=== PATIENT | male | born 1935 ===

== ENCOUNTER 2016-10-23 06:51 | Inpatient (IN) | payer MEDICARE, MEDICAID ==
[2016-10-23 06:52] VITALS: BMI 29.2
[2016-10-23] MEDS ORDERED: Sodium Chloride 0.9% 1,000 ML IV STA (07:41)
--- NOTE | 2016-10-23 07:42 | ED PDOC ---
HPI: Altered Mental Status Time Seen by Provider: 10/23/16 07:15 Chief Complaint (Nursing): Trauma Chief Complaint (Provider): Altered mental status History Per: Patient History/Exam Limitations: None Onset/Duration Of Symptoms: Hrs Associated Symptoms: Fever Additional Complaint(s): Patient is a 81 y/o male with a past medical history of congestive heart failure and deep vein thrombosis presenting to the emergency department for altered mental status since 5 a.m. today status post fall hours prior to arrival. Family reports that EMS was called this morning for a fall assist and patient signed an RMA. Upon ED arrival, reports patient wasn't feeling well and was confused (although AOx3). Now presents with a fever and redness to his left leg. Due to patient's limited verbal status, history and other information are limited. PCP: Dr. Viraj Nicole Past Medical History Reviewed: Historical Data, Nursing Documentation, Vital Signs Vital Signs: Last Vital Signs Temp 100.0 F H 10/23/16 07:03 Pulse 93 H 10/23/16 07:03 Resp 18 10/23/16 07:03 BP 100/58 L 10/23/16 07:03 Pulse Ox 95 10/23/16 07:03 - Medical History PMH: Arthritis, Asthma, Atrial Fibrillation, Bronchitis, Cardia Arrhythmia (a fib dipti), Diabetes, Diverticulitis, Gastritis, Gall Bladder Disease, Hiatal Hernia, HTN, Hypercholesterolemia, Hyperlipidemia, Malignancy (Colon cancer), Parkinson's Disease, TIA Denies: Chronic Kidney Disease - Surgical History Surgical History: Cholecystectomy Other surgeries: Skull fracture - Family History Family History: States: Unknown Family Hx - Social History Current smoker - smoking cessation education provided: No Ex-Smoker (has not smoked in the last 12 months): No Alcohol: None Drugs: Denies - Immunization History Hx Tetanus Toxoid Vaccination: No Hx Influenza Vaccination: No Hx Pneumococcal Vaccination: No - Home Medications Home Medications: Ambulatory Orders Medication Instructions Recorded Aspirin [Ecotrin] 81 mg PO DAILY 03/23/15 Ergocalciferol (Vitamin D2) 50,000 unit PO QWK 03/23/15 [Vitamin D2] Lisinopril 5 mg PO DAILY 03/23/15 Metformin HCl 500 mg PO BID 03/23/15 Carbidopa/Levodopa 25/100 mg 1 tab PO TID #0 tab 12/03/15 [Sinemet] Nabumetone [Relafen] 500 mg PO DAILY #0 tab 12/03/15 Omeprazole 20 mg PO DAILY 09/13/16 Pramipexole Di-HCl [Pramipexole 0.25 mg PO TID 09/13/16 Dihydrochloride] Simvastatin 20 mg PO HS 09/13/16 Tamsulosin [Flomax] 0.4 mg PO DAILY 09/13/16 - Allergies Allergies/Adverse Reactions: Allergies Allergy/AdvReac Type Severity Reaction Status Date / Time No Known Allergies Allergy Verified 10/23/16 07:02 Review of Systems ROS Statement: Except As Marked, All Systems Reviewed And Found Negative Constitutional: Positive for: Fever Musculoskeletal: Positive for: Other (Redness to left leg) Neurological: Positive for: Altered Mental Status (with limited verbal status) Physical Exam - Reviewed Nursing Documentation Reviewed: Yes Vital Signs Reviewed: Yes - Physical Exam Appears: Positive for: Non-toxic (weak elderly male ), No Acute Distress Head Exam: Positive for: ATRAUMATIC, NORMAL INSPECTION, NORMOCEPHALIC Skin: Positive for: Normal Color, Warm, Dry (dry mucous) Eye Exam: Positive for: Normal appearance. Negative for: Scleral icterus Neck: Positive for: Normal, Painless ROM, Supple Cardiovascular/Chest: Positive for: Regular Rate, Rhythm. Negative for: Murmur Respiratory: Positive for: Normal Breath Sounds. Negative for: Accessory Muscle Use, Respiratory Distress Gastrointestinal/Abdominal: Positive for: Soft Extremity: Positive for: Other (erythema and warmth along left leg from ankle to right above the knee). Negative for: Pedal Edema Neurologic/Psych: Positive for: Alert - Laboratory Results Result Diagrams: 10/24/16 09:00 10/24/16 09:00 - ECG ECG Rhythm: Positive for: Sinus Rhythm (93 bpm) O2 Sat by Pulse Oximetry: 95 (RA) Pulse Ox Interpretation: Normal Medical Decision Making Medical Decision Making: Time: 07:41 Initial impression: 81 year status post fall yesterday and today with gen weakness rule out Uti, possible cellulitis on leg, rule out dvt, rule out pneumonia Initial plan: Labs EKG Chest X-Ray Normal Saline 1 L IV Blood Culture Urine Culture Urinalysis Reevaluation ekg nsr, pt will be treated with abx for cellulits of left leg. urine and cxr are negative for acute infection. small amount of ivf given due to pt history of chf , will hold off on large boluses of iv fluids. pt to be admitted to telemetry for cardiac monitoring due to strong cardiac history. pt goes to [place], will be admitted to dr morton. thee nagy aware of admission. 08:33 Chest x-ray reviewed. Findings noted as follows: LUNGS: No active pulmonary disease. PLEURA: No significant pleural effusion identified, no pneumothorax apparent. CARDIOVASCULAR: No radiographic findings to suggest acute or significant cardiovascular disease. OSSEOUS STRUCTURES: No significant abnormalities. VISUALIZED UPPER ABDOMEN: Normal. OTHER FINDINGS: None. IMPRESSION: No active disease. No significant interval change compared to the prior examination(s). 11:03 CT head scan reviewed. Findings noted as follows: HEMORRHAGE: No intracranial hemorrhage. BRAIN: No mass effect or edema. Mild atrophy. VENTRICLES: Unremarkable. No hydrocephalus. CALVARIUM: Unremarkable. PARANASAL SINUSES: Unremarkable as visualized. No significant inflammatory changes. MASTOID AIR CELLS: Unremarkable as visualized. No inflammatory changes. OTHER FINDINGS: None. IMPRESSION: No acute hemorrhage. 12:50 Hip/Pelvic CT scan reviewed. Findings noted as follows: BONES: Pelvis: Unremarkable. Right hip:Unremarkable. Left hip:Unremarkable. JOINTS: Symmetrical narrowing of hip joint spaces. Sacroiliac Joints: Unremarkable. Pubic symphysis: Unremarkable. SOFT TISSUES: Normal. OTHER FINDINGS: None. IMPRESSION: No acute findings related to/accounting for the clinical presentation. Scribe Attestation: Documented by Rosa Bajwa, acting as a scribe for Vanessa Dumas MD. Provider Scribe Attestation: All medical record entries made by the Scribe were at my direction and personally dictated by me. I have reviewed the chart and agree that the record accurately reflects my personal performance of the history, physical exam, medical decision making, and the department course for this patient. I have also personally directed, reviewed, and agree with the discharge instructions and disposition. Disposition - Clinical Impression Clinical Impression: Cellulitis of knee, left, Dehydration, Fall - Patient ED Disposition Is Patient to be Admitted: Yes - Disposition Disposition Time: 09:00 Condition: FAIR
--- NOTE | 2016-10-23 07:46 | CARD ---
APPROVED REPORT EKG Measurement Heart [id number] <Conclusion> Normal sinus rhythm Nonspecific T wave abnormality Abnormal ECG
[2016-10-23 08:30] LABS: BASO % 0.3 % (0.0-2.0); HEMATOCRIT 38.7 % (35.0-51.0); LYMPH # 1.3 K/uL (1.0-4.3); LYMPH % 7.5 % (20.0-40.0); MEAN CELL VOLUME 90.1 fl (80.0-94.0); MEAN CORPUSCULAR HEMOGLOBIN 29.8 pg (27.0-31.0); MEAN CORPUSCULAR HGB CONC 33.1 g/dL (33.0-37.0); MEAN PLATELET VOLUME 10.4 fl (7.2-11.7); MONO # 0.7 K/uL (0.0-0.8); MONO % 4.1 % (0.0-10.0); NEUT # 14.8 K/uL (1.8-7.0); NEUT % 88.1 % (50.0-75.0); NRBC % 0.1 % (0.0-0.0); PLATELET COUNT 130 K/uL (130-400); RED CELL DISTRIBUTION WIDTH 14.5 % (11.5-14.5); WHITE BLOOD COUNT 16.8 K/uL (4.8-10.8)
[2016-10-23 08:30] LABS: VENOUS BLOOD GAS BASE EXCESS 3.9 mmol/L (0.0-2.0); VENOUS BLOOD GAS PCO2 51 mmHg (40-60); VENOUS BLOOD PH 7.38 (7.32-7.43)
[2016-10-23 08:35] LABS: ALB/GLOB RATIO 1.4 (1.0-2.1); ALKALINE PHOSPHATASE 46 U/L (38-126); ALT/SGPT 48 U/L (21-72); AST/SGOT 94 U/L (17-59); BILIRUBIN,TOTAL 1.7 mg/dl (0.2-1.3); BLOOD UREA NITROGEN 26 mg/dl (9-20); CALCIUM 9.6 mg/dL (8.4-10.2); CARBON DIOXIDE 25 mmol/L (22-30); CHLORIDE 100 mmol/L (98-107); GFR AFRICAN-AMERICAN > 60; GLUCOSE,RANDOM 116 mg/dL (75-110); POTASSIUM 4.3 MMOL/L (3.6-5.0); SODIUM 138 mmol/l (132-148); TOTAL PROTEIN 7.6 G/DL (6.3-8.2)
--- NOTE | 2016-10-23 08:35 | RAD ---
HISTORY: weakness Technique: Supine view performed @ 08:15. COMPARISON: 11/29/2015 FINDINGS: LUNGS: No active pulmonary disease. PLEURA: No significant pleural effusion identified, no pneumothorax apparent. CARDIOVASCULAR: No radiographic findings to suggest acute or significant cardiovascular disease. OSSEOUS STRUCTURES: No significant abnormalities. VISUALIZED UPPER ABDOMEN: Normal. OTHER FINDINGS: None. IMPRESSION: No active disease. No significant interval change compared to the prior examination(s). No preliminary report provided by emergency department personnel.
[2016-10-23 09:06] LABS: GIANT PLATELETS PRESENT; LARGE PLATELETS PRESENT; NEUTROPHIL 87 % (42-75); TOTAL CELLS COUNTED 100
[2016-10-23] MEDS ORDERED: Ampicillin/Sulbactam 3 GM in Sodium Chloride 0.9% 100 ML IVPB ONE (10:30)
--- NOTE | 2016-10-23 11:04 | CT ---
PROCEDURE: CT HEAD WITHOUT CONTRAST. HISTORY: fall last night COMPARISON: None available. TECHNIQUE: Axial computed tomography images were obtained through the head/brain without intravenous contrast. Radiation dose: Total exam DLP = 878 mGy-cm. This CT exam was performed using one or more of the following dose reduction techniques: Automated exposure control, adjustment of the mA and/or kV according to patient size, and/or use of iterative reconstruction technique. FINDINGS: HEMORRHAGE: No intracranial hemorrhage. BRAIN: No mass effect or edema. Mild atrophy. VENTRICLES: Unremarkable. No hydrocephalus. CALVARIUM: Unremarkable. PARANASAL SINUSES: Unremarkable as visualized. No significant inflammatory changes. MASTOID AIR CELLS: Unremarkable as visualized. No inflammatory changes. OTHER FINDINGS: None. IMPRESSION: No acute hemorrhage.
[2016-10-23 12:33] LABS: ABG ALLEN TEST YES; ARTERIAL BLOOD GAS HCO3 27.9 mmol/L (21-28); ARTERIAL BLOOD GAS PH 7.47 (7.35-7.45); ARTERIAL BLOOD GAS PO2 74 mm/Hg (80-100)
--- NOTE | 2016-10-23 12:52 | RAD ---
PROCEDURE: Radiographs of the pelvis and bilateral hips HISTORY: fall last night COMPARISON: None. FINDINGS: BONES: Pelvis: Unremarkable. Right hip:Unremarkable. Left hip:Unremarkable. JOINTS: Symmetrical narrowing of hip joint spaces. Sacroiliac Joints: Unremarkable. Pubic symphysis: Unremarkable. SOFT TISSUES: Normal. OTHER FINDINGS: None. IMPRESSION: No acute findings related to/accounting for the clinical presentation.
[2016-10-23 13:05] LABS: RBC URINE 10 /hpf (0-3); URINE BACTERIA RARE (<OCC); URINE BILIRUBIN SMALL (NEGATIVE); URINE BLOOD SMALL (NEGATIVE); URINE COLOR AMBER (YELLOW); URINE GLUCOSE (UA) NEG (Normal); URINE KETONE TRACE mg/dL (NEGATIVE); URINE LEUKOCYTE ESTERASE NEG Leu/uL (Negative); URINE PROTEIN 30 mg/dL (NEGATIVE); URINE UROBILINOGEN 0.2-1.0 mg/dL (0.2-1.0); WBC URINE 2 /hpf (0-5)
[2016-10-23] MEDS ORDERED: Ergocalciferol 50,000 Intl Units Cap PO SCH (14:15)
--- NOTE | 2016-10-23 15:23 | US ---
HISTORY: left leg redness history of dvt . Left calf erythema PRIORS: 11/29/2015 FINDINGS: 2-D, color and duplex Doppler analysis of the lower extremity venous circulation using routine protocol from the femoral veins through the popliteal veins. Venous compressibility: Normal. Flow and augmentation patterns: Normal. Visualized veins upper third of calf: Normal. Johnson cyst: None. Incidental finding(s): Left inguinal lymphadenopathy similar to that seen previously. Morphologically, unremarkable lymph nodes. IMPRESSION: No sonographic or Doppler evidence for DVT in left lower extremity. PROCEDURE: Negative study for left lower extremity deep vein thrombosis
[2016-10-23] MEDS: Pantoprazole 20 mg EC Tab PO SCH (17:04)
[2016-10-23] MEDS: Sodium Chloride 0.9% 1,000 ML IV SCH (17:05)
[2016-10-23] MEDS: Nabumetone 500 MG TAB PO SCH (17:05)
[2016-10-23] MEDS: Ampicillin/Sulbactam 3 GM in Sodium Chloride 0.9% 100 ML IVPB SCH ×2 (17:08→21:17)
[2016-10-23] MEDS ORDERED: Pneumococcal 23-Valent Vaccine IM ONE (18:18)
[2016-10-24] MEDS: Sodium Chloride 0.9% 1,000 ML IV SCH ×2 (01:00→11:20)
[2016-10-24] MEDS: Ampicillin/Sulbactam 3 GM in Sodium Chloride 0.9% 100 ML IVPB SCH ×4 (04:55→21:26)
--- NOTE | 2016-10-24 08:32 | CP.PCM.HP ---
History of Present Illness - History of Present Illness History of Present Illness: pt admitted for lle cellulitis and fall. pt w/ some dehydration on bw. offers no complaitns. pt noted to be in rapid afib at present w/ hr 110-140. no cp, palpitations, dyspnea. cardio on case lle erythematous, indurated. no open wounds. am labs pending Present on Admission - Present on Admission Any Indicators Present on Admission: No History of Uncontrolled Diabetes: No Review of Systems - Cardiovascular Cardiovascular: As Per HPI, Rapid Heart Rate - Integumentary Integumentary: As Per HPI, Erythema Past Patient History - Infectious Disease Hx of Infectious Diseases: None - Past Medical History & Family History Past Medical History?: Yes - Past Social History Smoking Status: Former Smoker - CARDIAC Hx Cardiac Disorders: Yes Hx Atrial Fibrillation: Yes Hx Cardia Arrhythmia: Yes Hx Congestive Heart Failure: Yes Hx Hypertension: Yes - PULMONARY Hx Respiratory Disorders: Yes Hx Asthma: Yes Hx Bronchitis: Yes - NEUROLOGICAL Hx Neurological Disorder: Yes Hx Parkinson's Disease: Yes - HEENT Hx HEENT Problems: Yes Other/Comment: wears glasses - RENAL Hx Chronic Kidney Disease: No - ENDOCRINE/METABOLIC Hx Endocrine Disorders: Yes Hx Diabetes Mellitus Type 2: Yes - HEMATOLOGICAL/ONCOLOGICAL Hx Blood Disorders: Yes Hx Cancer: Yes (prostate) - INTEGUMENTARY Hx Dermatological Problems: Yes Hx Cellulitis: Yes (history of) - MUSCULOSKELETAL/RHEUMATOLOGICAL Hx Musculoskeletal Disorders: Yes Hx Falls: Yes - GASTROINTESTINAL Hx Gastrointestinal Disorders: Yes Hx Diverticulitis: Yes Hx Gall Bladder Disease: Yes Hx Gastritis: Yes - GENITOURINARY/GYNECOLOGICAL Hx Genitourinary Disorders: Yes Hx Incontinence: Yes Hx Prostate Problems: Yes - PSYCHIATRIC Hx Psychophysiologic Disorder: No - SURGICAL HISTORY Hx Surgeries: Yes Hx Cholecystectomy: Yes Hx Herniorrhaphy: Yes - ANESTHESIA Hx Anesthesia: Yes Hx Anesthesia Reactions: No Hx Malignant Hyperthermia: No Meds Allergies/Adverse Reactions: Allergies Allergy/AdvReac Type Severity Reaction Status Date / Time No Known Allergies Allergy Verified 10/23/16 07:02 Physical Exam - Constitutional Appears: Well, Non-toxic, No Acute Distress - Head Exam Head Exam: ATRAUMATIC, NORMAL INSPECTION, NORMOCEPHALIC - Eye Exam Eye Exam: EOMI, Normal appearance, PERRL Pupil Exam: NORMAL ACCOMODATION, PERRL - ENT Exam ENT Exam: Mucous Membranes Moist, Normal Exam - Neck Exam Neck exam: Positive for: Normal Inspection - Respiratory Exam Respiratory Exam: Clear to Auscultation Bilateral, NORMAL BREATHING PATTERN - Cardiovascular Exam Cardiovascular Exam: Irregular Rhythm, +S1, +S2 - GI/Abdominal Exam GI & Abdominal Exam: Normal Bowel Sounds, Soft. absent: Tenderness - Extremities Exam Extremities exam: Positive for: full ROM, normal capillary refill, normal inspection, pedal pulses present - Back Exam Back exam: FULL ROM, NORMAL INSPECTION - Neurological Exam Neurological exam: Abnormal Gait, Alert, CN II-XII Intact, Oriented x3, Reflexes Normal - Psychiatric Exam Psychiatric exam: Normal Affect, Normal Mood - Skin Skin Exam: Dry, Erythema, Intact, Normal Color, Warm Additional comments: lle erythematous Results - Vital Signs Recent Vital Signs: Last Vital Signs Temp 99.0 F 10/24/16 08:22 Pulse 90 10/24/16 08:22 Resp 18 10/24/16 08:22 BP 96/66 L 10/24/16 08:22 Pulse Ox 96 10/24/16 08:22 - Labs Result Diagrams: 10/23/16 08:15 10/23/16 08:15 Labs: Laboratory Results - last 24 hr 10/23/16 10/23/16 10/23/16 12:20 12:30 16:16 pCO2 38 pO2 74 L HCO3 27.9 ABG pH 7.47 H ABG Total CO2 28.9 H ABG O2 Saturation 97.9 ABG Base Excess 3.9 H New Test Yes ABG Potassium 3.7 A-a O2 Difference 78.0 Sodium 133.0 Chloride 104.0 Glucose 121 H Lactate 0.8 FiO2 28.0 POC Glucose (mg/dL) 113 H Arterial Blood Potassium 3.7 Urine Color Iris Urine Clarity Slighty-cloudy Urine pH 6.0 Ur Specific [place] 1.027 Urine Protein 30 Urine Glucose (UA) Neg Urine Ketones Trace Urine Blood Small Urine Nitrate Negative Urine Bilirubin Small Urine Urobilinogen 0.2-1.0 Ur Leukocyte Esterase Neg Urine RBC (Auto) 10 H Urine Microscopic WBC 2 Ur Squamous Epith Cells < 1 Urine Bacteria Rare 10/23/16 10/24/16 21:34 05:46 pCO2 pO2 HCO3 ABG pH ABG Total CO2 ABG O2 Saturation ABG Base Excess New Test ABG Potassium A-a O2 Difference Sodium Chloride Glucose Lactate FiO2 POC Glucose (mg/dL) 126 H 122 H Arterial Blood Potassium Urine Color Urine Clarity Urine pH Ur Specific [place] Urine Protein Urine Glucose (UA) Urine Ketones Urine Blood Urine Nitrate Urine Bilirubin Urine Urobilinogen Ur Leukocyte Esterase Urine RBC (Auto) Urine Microscopic WBC Ur Squamous Epith Cells Urine Bacteria Assessment & Plan (1) Atrial fibrillation with rapid ventricular response Assessment and Plan: cardizem ivp lovenox, asa cardio Status: Acute (2) Cellulitis Assessment and Plan: unasyn podiatry if any wound opens Status: Acute (3) DM2 (diabetes mellitus, type 2) Assessment and Plan: home meds, fsbg Status: Acute (4) DVT prophylaxis Assessment and Plan: scda nda ehose lovenox Status: Acute Decision To Admit - Pt Status Changed To: Hospital Disposition Of: Inpatient - Admit Certification Admit to Inpatient:: After my assessment, the patient will require hospitalization for at least two midnights. This is because of the severity of symptoms shown, intensity of services needed, and/or the medical risk in this patient being treated as an outpatient. - . Bed Request Type: Telemetry Admitting Physician: Emily Johnson
--- NOTE | 2016-10-24 08:36 | CARD ---
APPROVED REPORT EKG Measurement Heart [id number] <Conclusion> Atrial fibrillation with rapid ventricular response Nonspecific T wave abnormality Abnormal ECG
[2016-10-24] MEDS: Nabumetone 500 MG TAB PO SCH (08:55)
[2016-10-24] MEDS: Pantoprazole 20 mg EC Tab PO SCH (08:55)
[2016-10-24] MEDS ORDERED: Enoxaparin 40 mg Syringe SC SCH (09:00)
[2016-10-24 09:18] LABS: BASO % 0.2 % (0.0-2.0); EOS % 0.1 % (0.0-4.0); HEMATOCRIT 36.4 % (35.0-51.0); LYMPH # 1.6 K/uL (1.0-4.3); LYMPH % 11.9 % (20.0-40.0); MEAN CELL VOLUME 90.5 fl (80.0-94.0); MEAN CORPUSCULAR HEMOGLOBIN 29.4 pg (27.0-31.0); MEAN CORPUSCULAR HGB CONC 32.5 g/dL (33.0-37.0); MEAN PLATELET VOLUME 10.5 fl (7.2-11.7); MONO # 1.1 K/uL (0.0-0.8); MONO % 7.6 % (0.0-10.0); NEUT % 80.2 % (50.0-75.0); RED CELL DISTRIBUTION WIDTH 14.2 % (11.5-14.5); WHITE BLOOD COUNT 13.7 K/uL (4.8-10.8)
[2016-10-24 09:28] LABS: ALB/GLOB RATIO 1.2 (1.0-2.1); ALKALINE PHOSPHATASE 50 U/L (38-126); ALT/SGPT 52 U/L (21-72); AST/SGOT 75 U/L (17-59); BILIRUBIN,TOTAL 1.5 mg/dl (0.2-1.3); BLOOD UREA NITROGEN 20 mg/dl (9-20); CALCIUM 8.5 mg/dL (8.4-10.2); CARBON DIOXIDE 25 mmol/L (22-30); CHLORIDE 104 mmol/L (98-107); GFR AFRICAN-AMERICAN > 60; GLUCOSE,RANDOM 100 mg/dL (75-110); POTASSIUM 4.1 MMOL/L (3.6-5.0); SODIUM 138 mmol/l (132-148); TOTAL PROTEIN 6.6 G/DL (6.3-8.2)
[2016-10-24] MEDS ORDERED: Sodium Chloride 0.9% 250 ML IV SCH (11:00)
[2016-10-24] MEDS ORDERED: Digoxin 500 mcg/2ml (0.5 mg/2ml) Inj IVP ONE (16:19)
--- NOTE | 2016-10-24 16:25 | CP.PCM.CON ---
History of Present Illness - History of Present Illness History of Present Illness: I was asked to see patient by Dr Johnson and Kash Underwood APN. Patient is a 81 year old male with a history of HTN, prostate cancer, who presents with weakness and a fall. The patient was found to be in atrial fibrillation with rapid ventricular response. Patient has no history of afib. He denies chest pain or dyspnea Review of Systems - Constitutional Constitutional: absent: As Per HPI, Anorexia, Chills, Daytime Sleepiness, Excessive Sweating, Fatigue, Fever, Frequent Falls, Headache, Increased Appetite , Lethargy, Malaise, Night Sweats, Snoring, Sleep Apnea, Weight Gain, Weight Loss, Weakness, Other - EENT Eyes: absent: As Per HPI, Blind Spots, Blurred Vision, Change in Vision, Decreased Night Vision, Diplopia, Discharge, Dry Eye, Exophthalmos, Floaters, Irritation, Itchy Eyes, Loss of Peripheral Vision, Pain, Photophobia, Requires Corrective Lenses, Sees Flashes, Spots in Vision, Tunnel Vision, Other Visual Disturbances, Loss of Vision, Other Ears: absent: As Per HPI, Decreased Hearing, Ear Discharge, Ear Pain, Tinnitus, Abnormal Hearing, Disequilibrium, Dizziness, Other Nose/Mouth/Throat: absent: As Per HPI, Epistaxis, Nasal Congestion, Nasal Discharge, Nasal Obstruction, Nasal Trauma, Nose Pain, Post Nasal Drip, Sinus Pain, Sinus Pressure, Bleeding Gums, Change in Voice, Dental Pain, Dry Mouth, Dysphagia, Halitosis, Hoarsness, Lip Swelling, Mouth Lesions, Mouth Pain, Odynophagia, Sore Throat, Throat Swelling, Tongue Swelling, Facial Pain, Neck Pain, Neck Mass, Other - Cardiovascular Cardiovascular: Dyspnea, Irregular Heart Rhythm - Respiratory Respiratory: absent: As Per HPI, Cough, Dyspnea, Hemoptysis, Dyspnea on Exertion , Wheezing, Snoring, Stridor, Pain on Inspiration, Chest Congestion, Excessive Mucous Production, Change in Mucous Color, Pain with Coughing, Other - Gastrointestinal Gastrointestinal: absent: As Per HPI, Abdominal Pain, Belching, Bloating, Change in Bowel Habits, Change in Stool Character, Coffee Ground Emesis, Constipation, Cramping, Diarrhea, Dyspepsia, Dysphagia, Early Satiety, Excessive Flatus, Fecal Incontinence, Heartburn, Hematemesis, Hematochezia, Loose Stools, Melena, Nausea, Odynophagia, Temesmus, Vomiting, Other - Genitourinary Genitourinary: absent: As Per HPI, Change in Urinary Stream, Difficulty Urinating, Dysuria, Flank Pain, Hematuria, Pyuria, Nocturia, Urinary Incontinence, Urinary Frequency, Urinary Hesitance, Urinary Urgency, Voiding Freq/Small Amts, Freq UTI, Hx Renal/Bladder Calculi, Hx /Renal Surgery, Bladder Distension, Other - Musculoskeletal Musculoskeletal: absent: As Per HPI, Abnormal Gait, Arthralgias, Atrophy, Back Pain, Deformity, Joint Swelling, Limited Range of Motion, Loss of Height, Muscle Cramps, Muscle Weakness, Myalgias, Neck Pain, Numbness, Radiating Pain into Limb, Stiffness, Tingling, Other - Integumentary Integumentary: absent: As Per HPI, Acne, Alopecia, Bleeding Lesions, Change in Hair, Change in Nails, Change in Pigmentation, Changing Lesions, Dry Skin, Erythema, Furuncle, Hirsutism, Lesions, New Lesions, Non-Healing Lesions, Photosensitivity, Pruritus, Rash, Skin Pain, Skin Ulcer, Sores, Striae, Swelling , Unusual Bruising, Wounds, Jaundice, Other - Neurological Neurological: absent: As Per HPI, Abnormal Gait, Abnormal Hearing, Abnormal Movements, Abnormal Speech, Behavioral Changes, Burning Sensations, Confusion, Convulsions, Disequilibrium, Dizziness, Numbness, Focal Weakness, Frequent Falls , Headaches, Lack of Coordination, Loss of Vision, Memory Loss, Paresthesias, Radicular Pain, Restless Legs, Sensory Deficit, Syncope, Tingling, Tremor, Vertigo, Weakness, Other Visual Disturbances, Other - Psychiatric Psychiatric: absent: As Per HPI, Abnormal Sleep Pattern, Anhedonia, Anxiety, Auditory Hallucinations, Behavioral Changes, Change in Appetite, Change in Libido, Confusion, Depression, Difficulty Concentrating, Hallucinations, Homicidal Ideation, Hopelessness, Irritability, Memory Loss, Mood Swings, Panic Attacks, Paranoia, Suicidal Ideation, Visual Hallucinations, Tactile Hallucinations, Other - Endocrine Endocrine: absent: As Per HPI, Change in Body Appearance, Change in Libido, Cold Intolorance, Deepening of Voice, Excessive Sweating, Fatigue, Flushing, Heat Intolorance, Increase in Ring/Shoe/Hat Size, Palpitations, Polydipsia, Polyphagia, Polyuria, Other - Hematologic/Lymphatic Hematologic: absent: As Per HPI, Easy Bleeding, Easy Bruising, Lymphadenopathy, Other Past Patient History - Infectious Disease Hx of Infectious Diseases: None - Past Medical History & Family History Past Medical History?: Yes - Past Social History Smoking Status: Former Smoker - CARDIAC Hx Cardiac Disorders: Yes Hx Atrial Fibrillation: Yes Hx Cardia Arrhythmia: Yes Hx Congestive Heart Failure: Yes Hx Hypertension: Yes - PULMONARY Hx Respiratory Disorders: Yes Hx Asthma: Yes Hx Bronchitis: Yes - NEUROLOGICAL Hx Neurological Disorder: Yes Hx Parkinson's Disease: Yes - HEENT Hx HEENT Problems: Yes Other/Comment: wears glasses - RENAL Hx Chronic Kidney Disease: No - ENDOCRINE/METABOLIC Hx Endocrine Disorders: Yes Hx Diabetes Mellitus Type 2: Yes - HEMATOLOGICAL/ONCOLOGICAL Hx Blood Disorders: Yes Hx Cancer: Yes (prostate) - INTEGUMENTARY Hx Dermatological Problems: Yes Hx Cellulitis: Yes (history of) - MUSCULOSKELETAL/RHEUMATOLOGICAL Hx Musculoskeletal Disorders: Yes Hx Falls: Yes - GASTROINTESTINAL Hx Gastrointestinal Disorders: Yes Hx Diverticulitis: Yes Hx Gall Bladder Disease: Yes Hx Gastritis: Yes - GENITOURINARY/GYNECOLOGICAL Hx Genitourinary Disorders: Yes Hx Incontinence: Yes Hx Prostate Problems: Yes - PSYCHIATRIC Hx Psychophysiologic Disorder: No - SURGICAL HISTORY Hx Surgeries: Yes Hx Cholecystectomy: Yes Hx Herniorrhaphy: Yes - ANESTHESIA Hx Anesthesia: Yes Hx Anesthesia Reactions: No Hx Malignant Hyperthermia: No Meds Allergies/Adverse Reactions: Allergies Allergy/AdvReac Type Severity Reaction Status Date / Time No Known Allergies Allergy Verified 10/23/16 07:02 - Medications Medications: Current Medications Acetaminophen (Tylenol 325mg Tab) 650 mg PO Q4 PRN PRN Reason: Fever >100.4 F Aspirin (Ecotrin) 81 mg PO DAILY [facility] Last Admin: 10/24/16 08:55 Dose: 81 mg Atorvastatin Calcium (Lipitor) 10 mg PO HS [facility] Last Admin: 10/23/16 21:03 Dose: 10 mg Carbidopa/Levodopa (Sinemet) 1 tab PO TID [facility] Last Admin: 10/24/16 12:21 Dose: 1 tab Digoxin (Lanoxin) 0.5 mg IVP ONCE ONE Stop: 10/24/16 16:20 Diltiazem HCl (Cardizem) 60 mg PO Q6 [facility] Last Admin: 10/24/16 14:04 Dose: 60 mg Enoxaparin Sodium (Lovenox) 70 mg SC Q12 JUDI PRN Reason: Protocol Ergocalciferol (Drisdol 50,000 Intl Units Cap) 1 cap PO QWK [facility] Ampicillin Sodium/Sulbactam (Sodium 3 gm/ Sodium Chloride) 100 mls @ 100 mls/ hr IVPB Q6 [facility] Last Admin: 10/24/16 09:02 Dose: 100 mls/hr Lisinopril (Zestril) 5 mg PO DAILY [facility] Last Admin: 10/24/16 08:53 Dose: 5 mg Metformin HCl (Glucophage) 500 mg PO BID [facility] Last Admin: 10/24/16 08:54 Dose: 500 mg Nabumetone (Relafen) 500 mg PO DAILY [facility] Last Admin: 10/24/16 08:55 Dose: 500 mg Pantoprazole Sodium (Protonix Ec Tab) 20 mg PO DAILY [facility] Last Admin: 10/24/16 08:55 Dose: 20 mg Pramipexole Dihydrochloride (Mirapex) 0.25 mg PO TID [facility] Last Admin: 10/24/16 12:21 Dose: 0.25 mg Tamsulosin HCl (Flomax) 0.4 mg PO DAILY [facility] Last Admin: 10/24/16 08:55 Dose: 0.4 mg Physical Exam - Constitutional Appears: Non-toxic - Head Exam Head Exam: NORMAL INSPECTION - ENT Exam ENT Exam: Mucous Membranes Moist - Neck Exam Neck exam: Positive for: Full Rom - Respiratory Exam Respiratory Exam: NORMAL BREATHING PATTERN - Cardiovascular Exam Cardiovascular Exam: Irregular Rhythm - GI/Abdominal Exam GI & Abdominal Exam: Normal Bowel Sounds - Rectal Exam Rectal Exam: Deferred - Extremities Exam Extremities exam: Negative for: pedal edema - Back Exam Back exam: NORMAL INSPECTION - Neurological Exam Neurological exam: Alert, Oriented x3 - Psychiatric Exam Psychiatric exam: Normal Affect - Skin Skin Exam: Normal Color Results - Vital Signs Recent Vital Signs: Last Vital Signs Temp 98.8 F 10/24/16 15:52 Pulse 101 H 10/24/16 15:52 Resp 20 10/24/16 15:52 BP 96/56 L 10/24/16 15:52 Pulse Ox 97 10/24/16 15:52 - Labs Result Diagrams: 10/24/16 09:00 10/24/16 09:00 Labs: Laboratory Results - last 24 hr 09/11/17 09/11/17 09/12/17 16:16 21:34 05:46 WBC RBC Hgb Hct MCV MCH MCHC RDW Plt Count MPV Neut % (Auto) Lymph % (Auto) [place] % (Auto) Eos % (Auto) Baso % (Auto) Neut # Lymph # [place] # Eos # Baso # Sodium Potassium Chloride Carbon Dioxide Anion Gap BUN Creatinine Est GFR ( Amer) Est GFR (Non-Af Amer) POC Glucose (mg/dL) 113 H 126 H 122 H Random Glucose Calcium Total Bilirubin AST ALT Alkaline Phosphatase Troponin I Total Protein Albumin Globulin Albumin/Globulin Ratio 10/24/16 10/24/16 10/24/16 09:00 09:00 09:00 WBC 13.7 H RBC 4.02 L Hgb 11.8 L Hct 36.4 MCV 90.5 MCH 29.4 MCHC 32.5 L RDW 14.2 Plt Count 145 MPV 10.5 Neut % (Auto) 80.2 H Lymph % (Auto) 11.9 L [place] % (Auto) 7.6 Eos % (Auto) 0.1 Baso % (Auto) 0.2 Neut # 11.0 H Lymph # 1.6 [place] # 1.1 H Eos # 0.0 Baso # 0.0 Sodium 138 Potassium 4.1 Chloride 104 Carbon Dioxide 25 Anion Gap 12 BUN 20 Creatinine 1.0 Est GFR ( Amer) > 60 Est GFR (Non-Af Amer) > 60 POC Glucose (mg/dL) Random Glucose 100 Calcium 8.5 Total Bilirubin 1.5 H AST 75 H D ALT 52 Alkaline Phosphatase 50 Troponin I 0.0250 Total Protein 6.6 Albumin 3.5 D Globulin 3.0 Albumin/Globulin Ratio 1.2 10/24/16 10/24/16 10:57 14:30 WBC RBC Hgb Hct MCV MCH MCHC RDW Plt Count MPV Neut % (Auto) Lymph % (Auto) [place] % (Auto) Eos % (Auto) Baso % (Auto) Neut # Lymph # [place] # Eos # Baso # Sodium Potassium Chloride Carbon Dioxide Anion Gap BUN Creatinine Est GFR ( Amer) Est GFR (Non-Af Amer) POC Glucose (mg/dL) 198 H Random Glucose Calcium Total Bilirubin AST ALT Alkaline Phosphatase Troponin I 0.0250 Total Protein Albumin Globulin Albumin/Globulin Ratio - EKG Data EKG Interpreted by: Myself Assessment & Plan (1) Atrial fibrillation with rapid ventricular response Assessment and Plan: patient will need improved rate control. recommend addition of digoxin. continue cardizem. will check echocardiogram Status: Acute
[2016-10-24 16:44] VITALS: PULSE 136
[2016-10-24] MEDS: Enoxaparin 80 mg Syringe SC SCH (21:27)
[2016-10-25] MEDS: Ampicillin/Sulbactam 3 GM in Sodium Chloride 0.9% 100 ML IVPB SCH ×4 (04:05→21:38)
--- NOTE | 2016-10-25 09:19 | CP.PCM.PN ---
Subjective - Date & Time of Evaluation Date of Evaluation: 10/25/16 Time of Evaluation: : - Subjective Subjective: pt in bed, no distress. no f/c, n/v/d. afib on monitor controlled rate. lle less erythema, induration Objective - Vital Signs/Intake and Output Vital Signs (last 24 hours): Temp Pulse Resp BP Pulse Ox 97.8 F 52 L 18 113/76 95 10/25/16 08:00 10/25/16 08:00 10/25/16 08:00 10/25/16 08:00 10/25/16 08:00 - Medications Medications: Current Medications Acetaminophen (Tylenol 325mg Tab) 650 mg PO Q4 PRN PRN Reason: Fever >100.4 F Acetaminophen (Tylenol 325mg Tab) 650 mg PO Q4 PRN PRN Reason: Pain, moderate (4-7) Last Admin: 10/25/16 00:48 Dose: 650 mg Aspirin (Ecotrin) 81 mg PO DAILY [facility] Last Admin: 10/24/16 08:55 Dose: 81 mg Atorvastatin Calcium (Lipitor) 10 mg PO HS [facility] Last Admin: 10/24/16 21:28 Dose: 10 mg Carbidopa/Levodopa (Sinemet) 1 tab PO TID [facility] Last Admin: 10/24/16 16:45 Dose: 1 tab Diltiazem HCl (Cardizem) 60 mg PO Q6 [facility] Last Admin: 10/25/16 04:21 Dose: 60 mg Enoxaparin Sodium (Lovenox) 70 mg SC Q12 [facility]I PRN Reason: Protocol Last Admin: 10/24/16 21:27 Dose: 70 mg Ergocalciferol (Drisdol 50,000 Intl Units Cap) 1 cap PO QWK [facility] Ampicillin Sodium/Sulbactam (Sodium 3 gm/ Sodium Chloride) 100 mls @ 100 mls/ hr IVPB Q6 [facility] Last Admin: 10/25/16 04:05 Dose: 100 mls/hr Ketorolac Tromethamine (Toradol) 30 mg IVP Q6 PRN PRN Reason: Pain, severe (8-10) Lisinopril (Zestril) 5 mg PO DAILY [facility] Last Admin: 10/24/16 08:53 Dose: 5 mg Metformin HCl (Glucophage) 500 mg PO BID [facility] Last Admin: 10/24/16 16:45 Dose: 500 mg Nabumetone (Relafen) 500 mg PO DAILY [facility] Last Admin: 10/24/16 08:55 Dose: 500 mg Pantoprazole Sodium (Protonix Ec Tab) 20 mg PO DAILY [facility] Last Admin: 10/24/16 08:55 Dose: 20 mg Pramipexole Dihydrochloride (Mirapex) 0.25 mg PO TID [facility] Last Admin: 10/24/16 16:45 Dose: 0.25 mg Tamsulosin HCl (Flomax) 0.4 mg PO DAILY [facility] Last Admin: 10/24/16 08:55 Dose: 0.4 mg - Labs Labs: 10/24/16 09:00 10/24/16 09:00 - Constitutional Appears: Well, Non-toxic, No Acute Distress - Head Exam Head Exam: ATRAUMATIC, NORMAL INSPECTION, NORMOCEPHALIC - Eye Exam Eye Exam: EOMI, Normal appearance, PERRL Pupil Exam: NORMAL ACCOMODATION, PERRL - ENT Exam ENT Exam: Mucous Membranes Moist, Normal Exam - Neck Exam Neck Exam: Full ROM, Normal Inspection. absent: Lymphadenopathy - Respiratory Exam Respiratory Exam: Clear to Ausculation Bilateral, NORMAL BREATHING PATTERN - Cardiovascular Exam Cardiovascular Exam: Irregular Rhythm, +S1, +S2. absent: Murmur - GI/Abdominal Exam GI & Abdominal Exam: Soft, Normal Bowel Sounds. absent: Tenderness - Extremities Exam Extremities Exam: Full ROM, Normal Capillary Refill, Normal Inspection. absent : Joint Swelling, Pedal Edema - Back Exam Back Exam: NORMAL INSPECTION - Neurological Exam Neurological Exam: Alert, Awake, CN II-XII Intact, Normal Gait, Oriented x3 - Psychiatric Exam Psychiatric exam: Normal Affect, Normal Mood - Skin Skin Exam: Dry, Intact, Normal Color, Warm Assessment and Plan (1) Atrial fibrillation with rapid ventricular response Status: Acute (2) Cellulitis Status: Acute (3) DM2 (diabetes mellitus, type 2) Status: Acute (4) DVT prophylaxis Status: Acute - Assessment and Plan (Free Text) Assessment: (1) Atrial fibrillation with rapid ventricular response Assessment and Plan: cardizem po lovenox, asa cardio Status: Acute (2) Cellulitis Assessment and Plan: unasyn podiatry if any wound opens Status: Acute (3) DM2 (diabetes mellitus, type 2) Assessment and Plan: home meds, fsbg Status: Acute (4) DVT prophylaxis Assessment and Plan: scda nda ehose lovenox Status: Acute medically cleared for pt eval
[2016-10-25 10:24] LABS: ALKALINE PHOSPHATASE 61 U/L (38-126); ALT/SGPT 58 U/L (21-72); AST/SGOT 88 U/L (17-59); BILIRUBIN,TOTAL 1.4 mg/dl (0.2-1.3); BLOOD UREA NITROGEN 20 mg/dl (9-20); CALCIUM 7.9 mg/dL (8.4-10.2); CARBON DIOXIDE 21 mmol/L (22-30); CHLORIDE 108 mmol/L (98-107); GFR AFRICAN-AMERICAN > 60; GLUCOSE,RANDOM 110 mg/dL (75-110); SODIUM 139 mmol/l (132-148); TOTAL PROTEIN 6.5 G/DL (6.3-8.2)
[2016-10-25 10:30] LABS: POTASSIUM 4.8 MMOL/L (3.6-5.0)
[2016-10-25 10:40] LABS: BASO % 0.4 % (0.0-2.0); EOS # 0.1 K/uL (0.0-0.7); EOS % 1.2 % (0.0-4.0); HEMATOCRIT 35.4 % (35.0-51.0); LYMPH # 1.7 K/uL (1.0-4.3); LYMPH % 24.6 % (20.0-40.0); MEAN CELL VOLUME 90.7 fl (80.0-94.0); MEAN CORPUSCULAR HEMOGLOBIN 29.2 pg (27.0-31.0); MEAN CORPUSCULAR HGB CONC 32.2 g/dL (33.0-37.0); MEAN PLATELET VOLUME 10.4 fl (7.2-11.7); MONO # 0.7 K/uL (0.0-0.8); MONO % 10.4 % (0.0-10.0); NEUT # 4.5 K/uL (1.8-7.0); NEUT % 63.4 % (50.0-75.0); NRBC % 0.1 % (0.0-0.0); RED CELL DISTRIBUTION WIDTH 14.6 % (11.5-14.5); WHITE BLOOD COUNT 7.1 K/uL (4.8-10.8)
--- NOTE | 2016-10-25 10:43 | PQF CHF ---
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 Documentation in the H&P of a history of CHF. Echo is pending. Medication includes: Lisinopril. When the results of the echo are available would you please clarify the type of CHF. Clarification of your documentation is requested to better reflect the severity of illness and intensity of treatment of your patient. Indicators present [x] Diagnosis of a history of CHF [] BNP > 200 [] Imaging Finding of Pulmonary Edema /Pleural Effusions [] Fluid/Volume Overload [] Pitting edema [] Ejection Fraction < 40% (Indicative of Systolic Heart Failure) [] Ejection Fraction > 40% (Indicative of Diastolic Heart Failure) [] Dyspnea / Orthopenea / Paroxysmal Nocturnal Dyspnea [] Other: Location in the medical record that reflects the above clinical findings: [] Treatment Provided: [x] Lisinopril PHYSICIAN'S RESPONSE Based on your medical judgment of the clinical indicators outlined above, are you treating this patient for a known or suspected: [] Acute CHF [] Systolic [] Diastolic [] Combined [x] Chronic CHF [x] Systolic [] Diastolic [] Combined [] Acute on Chronic CHF []Systolic [] Diastolic [] Combined [] CHF due hypertension [] Acute systolic []Chronic systolic [] Acute/ chronic systolic [] Other, please indicate: [] [] If Unable to Determine, please check the box, sign and date. Present On Admission (POA) Indicator: [] Present at the time of admission [] Not present at the time of admission [] Clinically Undetermined In responding to this query, please exercise your independent professional judgment. The fact that a question is asked does not imply that any particular answer is desired or expected. Thank you for your clarification on this documentation. If you have any questions please call:ext [phone] * Thank you, Kathy Paulino RN CDMP MTDD
[2016-10-25] MEDS: Enoxaparin 80 mg Syringe SC SCH ×2 (11:13→21:38)
[2016-10-25] MEDS: Pantoprazole 20 mg EC Tab PO SCH (11:21)
[2016-10-25 12:45] VITALS: RESP 20
[2016-10-25] MEDS: Nabumetone 500 MG TAB PO SCH (13:27)
--- NOTE | 2016-10-25 18:01 | CP.PCM.PN ---
Subjective - Date & Time of Evaluation Date of Evaluation: 10/25/16 Time of Evaluation: 18:00 - Subjective Subjective: I was asked to see patient in coverage for Dr Garland Man.. Patient is a 81 year old male with a history of HTN, prostate cancer, who presents with weakness and a fall. The patient was found to be in atrial fibrillation with rapid ventricular response. Patient has no history of afib. He denies chest pain or dyspnea. pt remains in afib. he denies orthopnea or palp. does have mild dizziness. pt c/o LLE pain and burning. The ANTHONY is swollen, erythemaous, and warm. Objective - Vital Signs/Intake and Output Vital Signs (last 24 hours): Temp Pulse Resp BP Pulse Ox 98.4 F 65 20 99/62 L 96 10/25/16 16:08 10/25/16 16:42 10/25/16 16:08 10/25/16 16:42 10/25/16 16:09 - Medications Medications: Current Medications Acetaminophen (Tylenol 325mg Tab) 650 mg PO Q4 PRN PRN Reason: Fever >100.4 F Acetaminophen (Tylenol 325mg Tab) 650 mg PO Q4 PRN PRN Reason: Pain, moderate (4-7) Last Admin: 10/25/16 00:48 Dose: 650 mg Aspirin (Ecotrin) 81 mg PO DAILY [facility] Last Admin: 10/25/16 11:18 Dose: 81 mg Atorvastatin Calcium (Lipitor) 10 mg PO HS [facility] Last Admin: 10/24/16 21:28 Dose: 10 mg Carbidopa/Levodopa (Sinemet) 1 tab PO TID [facility] Last Admin: 10/25/16 16:42 Dose: 1 tab Diltiazem HCl (Cardizem) 60 mg PO Q6 [facility] Last Admin: 10/25/16 16:42 Dose: Not Given Enoxaparin Sodium (Lovenox) 70 mg SC Q12 JUDI PRN Reason: Protocol Last Admin: 10/25/16 11:13 Dose: 70 mg Ergocalciferol (Drisdol 50,000 Intl Units Cap) 1 cap PO QWK [facility] Ampicillin Sodium/Sulbactam (Sodium 3 gm/ Sodium Chloride) 100 mls @ 100 mls/ hr IVPB Q6 [facility] Last Admin: 10/25/16 16:38 Dose: 100 mls/hr Ketorolac Tromethamine (Toradol) 30 mg IVP Q6 PRN PRN Reason: Pain, severe (8-10) Metformin HCl (Glucophage) 500 mg PO BID [facility] Last Admin: 10/25/16 16:42 Dose: 500 mg Nabumetone (Relafen) 500 mg PO DAILY [facility] Last Admin: 10/25/16 13:27 Dose: 500 mg Pantoprazole Sodium (Protonix Ec Tab) 20 mg PO DAILY [facility] Last Admin: 10/25/16 11:21 Dose: 20 mg Pramipexole Dihydrochloride (Mirapex) 0.25 mg PO TID [facility] Last Admin: 10/25/16 16:42 Dose: 0.25 mg Tamsulosin HCl (Flomax) 0.4 mg PO DAILY [facility] Last Admin: 10/25/16 11:18 Dose: 0.4 mg - Labs Labs: 10/25/16 10:15 10/25/16 09:50 - Constitutional Appears: Well - Head Exam Head Exam: ATRAUMATIC, NORMAL INSPECTION, NORMOCEPHALIC - Eye Exam Eye Exam: EOMI, Normal appearance, PERRL. absent: Conjunctival injection, Nystagmus, Periorbital swelling, Periorbital tenderness, Scleral icterus Pupil Exam: NORMAL ACCOMODATION, PERRL - ENT Exam ENT Exam: Mucous Membranes Moist, Normal Exam. absent: Mucous Membranes Dry, Normal External Ear Exam, Normal Oropharynx, TM's Normal Bilaterally - Neck Exam Neck Exam: Full ROM, Normal Inspection - Respiratory Exam Respiratory Exam: Clear to Ausculation Bilateral, NORMAL BREATHING PATTERN. absent: Accessory Muscle Use, Chest Wall Tenderness, Decreased Breath Sounds, Prolonged Expiratory Phase, Rales, Rhonchi, Wheezes, Respiratory Distress, Stridor - Cardiovascular Exam Cardiovascular Exam: Tachycardia, Irregular Rhythm, +S1, +S2, Murmur. absent: Bradycardia, Clicks, Diastolic murmur, Gallop, REGULAR RHYTHM, JVD, RRR, Rubs, + S4 - GI/Abdominal Exam GI & Abdominal Exam: Soft, Normal Bowel Sounds. absent: Bruit, Distended, Firm , Guarding, Rigid, Tenderness, Diminished Bowel Sounds, Hernia, Hyperactive Bowel Sounds, Hypoactive Bowel Sounds, Organomegaly, Pulsatile Mass, Rebound, Mass - Rectal Exam Rectal Exam: Deferred - Extremities Exam Extremities Exam: Calf Tenderness, Pedal Edema, Tenderness. absent: Full ROM, Joint Swelling, Normal Capillary Refill, Normal Inspection Additional comments: LLE AND FOOT SWOLLEN, ERYTHEMATOUS AND WARM. MILDLY TENDER - Back Exam Back Exam: NORMAL INSPECTION. absent: CVA tenderness (L), CVA tenderness (R), Full ROM, muscle spasm, paraspinal tenderness, rash noted, tenderness, vertebral tenderness - Neurological Exam Neurological Exam: Alert, Awake, CN II-XII Intact, Normal Gait, Oriented x3 - Psychiatric Exam Psychiatric exam: Normal Affect, Normal Mood. absent: Agitated, Anxious, Depressed, Flat Affect, Homicidal Ideation, Manic, Suicidal Ideation - Skin Skin Exam: Dry, Intact, Normal Color, Warm. absent: Abrasion, Cyanosis, Diaphoretic, Erythema, Mottled, Pallor, Pallor, Petechiae, Rash, Urticaria, Vesicles Assessment and Plan (1) Dizziness Status: Acute (2) Fall Status: Acute (3) Atrial fibrillation with rapid ventricular response Status: Acute (4) Cellulitis Status: Acute (5) Left leg cellulitis Status: Acute - Assessment and Plan (Free Text) Plan: GIVEN HX OF CA AND NEW ONSET AFIB, WILL CHECK V/Q DESPITE LE DOPPLER BEING NEGATIVE. IF THE STUDY IS LOW PROB THEN MAY LOWER ANTICOAG DOSE TO PROPHYLAXIS. REPLEAT LYTES. CONSIDER ABX FOR THE LLE. REPLEAT LYTES. CHECK MAG. ECHO REVIEWED. LIMITED WINDOWS. NORMAL EF NOTED. MILD MR AND TR. DILATED IVC. TR INSUFFICIENT TO MEASURE PAP. MYOCARDIAL FAT PAD VS LOCULATED ANTERIOR PERICARDIAL EFFUSION. NO EVIDENCE OF TAMPONADE PHYSIOLOGY. LISINOPRIL STOPPED DUE TO DECREASED BP WITH CCB'S. 60 MIN TOTAL CARE TIME.
[2016-10-26] MEDS: Ampicillin/Sulbactam 3 GM in Sodium Chloride 0.9% 100 ML IVPB SCH ×3 (04:39→17:06)
--- NOTE | 2016-10-26 07:55 | CP.PCM.PN ---
Subjective - Date & Time of Evaluation Date of Evaluation: 10/26/16 Time of Evaluation: 07:53 - Subjective Subjective: pt comfortable in bed, mild back pain, lle cellulitis cont to improve-less erythema, induration. afib controlled no f/c, n/v/d.for ghanshyam Objective - Vital Signs/Intake and Output Vital Signs (last 24 hours): Temp Pulse Resp BP Pulse Ox 98.7 F 69 20 107/67 98 10/26/16 04:47 10/26/16 04:47 10/26/16 04:47 10/26/16 04:47 10/26/16 04:47 - Medications Medications: Current Medications Acetaminophen (Tylenol 325mg Tab) 650 mg PO Q4 PRN PRN Reason: Fever >100.4 F Acetaminophen (Tylenol 325mg Tab) 650 mg PO Q4 PRN PRN Reason: Pain, moderate (4-7) Last Admin: 10/25/16 00:48 Dose: 650 mg Aspirin (Ecotrin) 81 mg PO DAILY [facility] Last Admin: 10/25/16 11:18 Dose: 81 mg Atorvastatin Calcium (Lipitor) 10 mg PO HS [facility] Last Admin: 10/25/16 21:38 Dose: 10 mg Carbidopa/Levodopa (Sinemet) 1 tab PO TID [facility] Last Admin: 10/25/16 16:42 Dose: 1 tab Digoxin (Lanoxin Elixir Soln) 0.25 mg PO DAILY [facility] Diltiazem HCl (Cardizem) 60 mg PO Q6 [facility] Last Admin: 10/26/16 04:40 Dose: 60 mg Enoxaparin Sodium (Lovenox) 70 mg SC Q12 [facility] PRN Reason: Protocol Last Admin: 10/25/16 21:38 Dose: 70 mg Ergocalciferol (Drisdol 50,000 Intl Units Cap) 1 cap PO QWK [facility] Ampicillin Sodium/Sulbactam (Sodium 3 gm/ Sodium Chloride) 100 mls @ 100 mls/ hr IVPB Q6 [facility] Last Admin: 10/26/16 04:39 Dose: 100 mls/hr Ketorolac Tromethamine (Toradol) 30 mg IVP Q6 PRN PRN Reason: Pain, severe (8-10) Metformin HCl (Glucophage) 500 mg PO BID [facility] Last Admin: 10/25/16 16:42 Dose: 500 mg Nabumetone (Relafen) 500 mg PO DAILY [facility] Last Admin: 10/25/16 13:27 Dose: 500 mg Pantoprazole Sodium (Protonix Ec Tab) 20 mg PO DAILY [facility] Last Admin: 10/25/16 11:21 Dose: 20 mg Pramipexole Dihydrochloride (Mirapex) 0.25 mg PO TID [facility] Last Admin: 10/25/16 16:42 Dose: 0.25 mg Tamsulosin HCl (Flomax) 0.4 mg PO DAILY [facility] Last Admin: 10/25/16 11:18 Dose: 0.4 mg - Labs Labs: 10/25/16 10:15 10/25/16 09:50 - Constitutional Appears: Well, Non-toxic, No Acute Distress - Head Exam Head Exam: ATRAUMATIC, NORMAL INSPECTION, NORMOCEPHALIC - Eye Exam Eye Exam: EOMI, Normal appearance, PERRL Pupil Exam: NORMAL ACCOMODATION, PERRL - ENT Exam ENT Exam: Mucous Membranes Moist, Normal Exam - Neck Exam Neck Exam: Full ROM, Normal Inspection. absent: Lymphadenopathy - Respiratory Exam Respiratory Exam: Clear to Ausculation Bilateral, NORMAL BREATHING PATTERN - Cardiovascular Exam Cardiovascular Exam: REGULAR RHYTHM, RRR, +S1, +S2. absent: Murmur - GI/Abdominal Exam GI & Abdominal Exam: Soft, Normal Bowel Sounds. absent: Tenderness - Extremities Exam Extremities Exam: Full ROM, Normal Capillary Refill, Normal Inspection. absent : Joint Swelling, Pedal Edema - Back Exam Back Exam: NORMAL INSPECTION - Neurological Exam Neurological Exam: Alert, Awake, CN II-XII Intact, Normal Gait, Oriented x3 - Psychiatric Exam Psychiatric exam: Normal Affect, Normal Mood - Skin Skin Exam: Dry, Intact, Normal Color, Warm Assessment and Plan (1) Atrial fibrillation with rapid ventricular response Status: Acute (2) Cellulitis Status: Acute (3) DM2 (diabetes mellitus, type 2) Status: Acute (4) DVT prophylaxis Status: Acute - Assessment and Plan (Free Text) Assessment: (1) Atrial fibrillation with rapid ventricular response-now rate controlled Assessment and Plan: cardizem po lovenox, asa cardio Status: Acute (2) Cellulitis Assessment and Plan: unasyn podiatry if any wound opens Status: Acute (3) DM2 (diabetes mellitus, type 2) Assessment and Plan: home meds, fsbg Status: Acute (4) DVT prophylaxis Assessment and Plan: scda nda ehose lovenox Status: Acute medically cleared for dc
[2016-10-26 07:57] VITALS: BP 108/66; PULSE 62; TEMP 98.5; O2SAT 97
[2016-10-26] MEDS ORDERED: Digoxin 0.05 mg/mL Elixir 5mL PO SCH (09:00)
[2016-10-26] MEDS: Enoxaparin 80 mg Syringe SC SCH (09:51)
[2016-10-26] MEDS: Pantoprazole 20 mg EC Tab PO SCH (09:52)
[2016-10-26] MEDS: Nabumetone 500 MG TAB PO SCH (09:52)
[2016-10-26 10:27] LABS: BASO % 0.5 % (0.0-2.0); EOS # 0.1 K/uL (0.0-0.7); EOS % 2.5 % (0.0-4.0); HEMATOCRIT 34.2 % (35.0-51.0); LYMPH # 1.5 K/uL (1.0-4.3); LYMPH % 27.6 % (20.0-40.0); MEAN CELL VOLUME 90.1 fl (80.0-94.0); MEAN CORPUSCULAR HEMOGLOBIN 29.5 pg (27.0-31.0); MEAN CORPUSCULAR HGB CONC 32.7 g/dL (33.0-37.0); MEAN PLATELET VOLUME 10.1 fl (7.2-11.7); MONO # 0.6 K/uL (0.0-0.8); NEUT # 3.1 K/uL (1.8-7.0); NEUT % 58.4 % (50.0-75.0); RED CELL DISTRIBUTION WIDTH 14.1 % (11.5-14.5); WHITE BLOOD COUNT 5.3 K/uL (4.8-10.8)
[2016-10-26 10:40] LABS: ALB/GLOB RATIO 1.1 (1.0-2.1); ALKALINE PHOSPHATASE 60 U/L (38-126); ALT/SGPT 66 U/L (21-72); AST/SGOT 59 U/L (17-59); BLOOD UREA NITROGEN 15 mg/dl (9-20); CALCIUM 8.7 mg/dL (8.4-10.2); CARBON DIOXIDE 28 mmol/L (22-30); CHLORIDE 101 mmol/L (98-107); GFR AFRICAN-AMERICAN > 60; GLUCOSE,RANDOM 161 mg/dL (75-110); POTASSIUM 4.2 MMOL/L (3.6-5.0); SODIUM 138 mmol/l (132-148); TOTAL PROTEIN 6.5 G/DL (6.3-8.2)
--- NOTE | 2016-10-26 10:53 | CP.PCM.PN ---
Subjective - Date & Time of Evaluation Date of Evaluation: 10/26/16 Time of Evaluation: 07:45 - Subjective Subjective: patient feels better. no chest pain. Objective - Vital Signs/Intake and Output Vital Signs (last 24 hours): Temp Pulse Resp BP Pulse Ox 98.5 F 62 20 108/66 97 10/26/16 07:56 10/26/16 07:56 10/26/16 07:56 10/26/16 07:56 10/26/16 07:56 - Medications Medications: Current Medications Acetaminophen (Tylenol 325mg Tab) 650 mg PO Q4 PRN PRN Reason: Fever >100.4 F Acetaminophen (Tylenol 325mg Tab) 650 mg PO Q4 PRN PRN Reason: Pain, moderate (4-7) Last Admin: 10/25/16 00:48 Dose: 650 mg Aspirin (Ecotrin) 81 mg PO DAILY [facility] Last Admin: 10/26/16 09:52 Dose: 81 mg Atorvastatin Calcium (Lipitor) 10 mg PO HS [facility] Last Admin: 10/25/16 21:38 Dose: 10 mg Carbidopa/Levodopa (Sinemet) 1 tab PO TID [facility] Last Admin: 10/26/16 09:52 Dose: 1 tab Digoxin (Lanoxin Elixir Soln) 0.25 mg PO DAILY [facility] Last Admin: 10/26/16 09:52 Dose: 0.25 mg Diltiazem HCl (Cardizem) 60 mg PO Q6 [facility] Last Admin: 10/26/16 04:40 Dose: 60 mg Enoxaparin Sodium (Lovenox) 70 mg SC Q12 [facility] PRN Reason: Protocol Last Admin: 10/26/16 09:51 Dose: 70 mg Ergocalciferol (Drisdol 50,000 Intl Units Cap) 1 cap PO QWK [facility] Ampicillin Sodium/Sulbactam (Sodium 3 gm/ Sodium Chloride) 100 mls @ 100 mls/ hr IVPB Q6 [facility] Last Admin: 10/26/16 09:53 Dose: 100 mls/hr Ketorolac Tromethamine (Toradol) 30 mg IVP Q6 PRN PRN Reason: Pain, severe (8-10) Metformin HCl (Glucophage) 500 mg PO BID [facility] Last Admin: 10/26/16 09:52 Dose: 500 mg Nabumetone (Relafen) 500 mg PO DAILY [facility] Last Admin: 10/26/16 09:52 Dose: 500 mg Pantoprazole Sodium (Protonix Ec Tab) 20 mg PO DAILY [facility] Last Admin: 10/26/16 09:52 Dose: 20 mg Pramipexole Dihydrochloride (Mirapex) 0.25 mg PO TID [facility] Last Admin: 10/26/16 09:51 Dose: 0.25 mg Tamsulosin HCl (Flomax) 0.4 mg PO DAILY [facility] Last Admin: 10/26/16 09:52 Dose: 0.4 mg - Labs Labs: 10/26/16 10:23 10/26/16 10:23 - Constitutional Appears: Non-toxic - Head Exam Head Exam: NORMAL INSPECTION - Eye Exam Eye Exam: Normal appearance - ENT Exam ENT Exam: Mucous Membranes Moist - Neck Exam Neck Exam: Full ROM - Respiratory Exam Respiratory Exam: Decreased Breath Sounds - Cardiovascular Exam Cardiovascular Exam: REGULAR RHYTHM - GI/Abdominal Exam GI & Abdominal Exam: Normal Bowel Sounds - Rectal Exam Rectal Exam: Deferred - Extremities Exam Extremities Exam: absent: Pedal Edema - Back Exam Back Exam: NORMAL INSPECTION - Neurological Exam Neurological Exam: Alert - Psychiatric Exam Psychiatric exam: Normal Affect - Skin Skin Exam: Normal Color Assessment and Plan (1) Atrial fibrillation with rapid ventricular response Assessment & Plan: patient is now in sinus rhythm. continue medicla therapy. not on anticoagulation due to falls risk Status: Acute
--- NOTE | 2016-10-26 11:49 | CARD ---
APPROVED REPORT EXAM: Two-dimensional and M-mode echocardiogram with Doppler and color Doppler. Other Information Quality : GoodRhythm : NSR INDICATION Atrial Fibrillation 2D DIMENSIONS IVSd0.97 (0.7-1.1cm)LVDd4.60 (3.9-5.9cm) LVOT Diameter2.17 (1.8-2.4cm)PWd1.14 (0.7-1.1cm) IVSs1.56 (0.8-1.2cm)LVDs2.58 (2.5-4.0cm) FS (%) 43.8 %PWs1.35 (0.8-1.2cm) M-Mode DIMENSIONS Left Atrium (MM)5.09 (2.5-4.0cm)IVSd1.00 (0.7-1.1cm) Aortic Root3.19 (2.2-3.7cm)LVDd5.31 (4.0-5.6cm) Aortic Cusp Exc.1.97 (1.5-2.0cm)PWd1.13 (0.7-1.1cm) IVSs1.78 cmFS (%) 44 % LVDs3.00 (2.0-3.8cm)PWs1.50 cm Mitral Valve MV E Ebfptbgk61.2cm/sMV DECEL [id number] A Bcjsrkjd57.1cm/s MV DVS24ljG/A ratio2.4MVA (PHT)4.95cm2 TDI Lateral E' Peak V14.50cm/sMedial E' Peak V9.45cm/sE/Lateral E'4.8 E/Medial E'7.4 Pulmonary Valve PV Peak Owgvzpwd12.4cm/s LEFT VENTRICLE The left ventricle is normal size. There is normal left ventricular wall thickness. Left ventricle systolic function is normal. The Ejection Fraction is 60-65%. There is normal LV segmental wall motion. Transmitral Doppler flow pattern is Grade II-pseudonormal filling dynamics. RIGHT VENTRICLE The right ventricle is normal size. There is normal right ventricular wall thickness. The right ventricular systolic function is normal. ATRIA The left atrium is mildly dilated. The right atrium size is normal. AORTIC VALVE The aortic valve is mildly sclerotic. No aortic regurgitation is present. There is no aortic valvular stenosis. MITRAL VALVE The mitral valve is normal in structure. There is no evidence of mitral valve prolapse. There is no mitral valve stenosis. Mitral regurgitation is mild to moderate. TRICUSPID VALVE The tricuspid valve is normal in structure and function. There is no tricuspid valve regurgitation noted. PULMONIC VALVE The pulmonary valve is normal in structure and function. There is no pulmonic valvular regurgitation. GREAT VESSELS The aortic root is normal in size. The IVC is dilated. PERICARDIAL EFFUSION The pericardium appears normal. <Conclusion> The left ventricle is normal size. There is normal left ventricular wall thickness. There is normal LV segmental wall motion. Left ventricle systolic function is normal. The Ejection Fraction is 60-65%. Transmitral Doppler flow pattern is Grade II-pseudonormal filling dynamics. Mitral regurgitation is mild to moderate. The IVC is dilated.
--- NOTE | 2016-10-26 13:36 | NM ---
COMPARISON: Not available TECHNIQUE: 45.200 mCi technetium 99-m DTPA aerosol. 5.146 mCI technetium 99-m MAA administered intravenously. FINDINGS: VENTILATION COMPONENT: Limited due to central tracheobronchial deposition of the inhaled radiopharmaceutical. Nevertheless, there are no significant ventilation defects identified. PERFUSION COMPONENT: Normal. IMPRESSION: Lowprobability ventilation perfusion scan for pulmonary embolism.
--- NOTE | 2016-10-26 17:50 | CP.PCM.DIS ---
Provider - Provider Date of Admission: 10/23/16 10:00 Attending physician: Emily Johnson MD Time Spent in preparation of Discharge (in minutes): 15 Diagnosis - Discharge Diagnosis (1) Atrial fibrillation with rapid ventricular response Status: Acute (2) Cellulitis Status: Acute (3) DM2 (diabetes mellitus, type 2) Status: Acute (4) DVT prophylaxis Status: Acute Hospital Course - Lab Results Lab Results: Micro Results 10/23/16 12:30 Urine Urine Culture - Final <10,000 CFU/ML. MULTIPLE SPECIES. PROBABLE CONTAMINATION. Most Recent Lab Values WBC 5.3 K/uL (4.8-10.8) 10/26/16 10:23 RBC 3.79 Mil/uL (4.40-5.90) L 10/26/16 10:23 Hgb 11.2 g/dL (12.0-18.0) L 10/26/16 10:23 Hct 34.2 % (35.0-51.0) L 10/26/16 10:23 MCV 90.1 fl (80.0-94.0) 10/26/16 10:23 MCH 29.5 pg (27.0-31.0) 10/26/16 10:23 MCHC 32.7 g/dL (33.0-37.0) L 10/26/16 10:23 RDW 14.1 % (11.5-14.5) 10/26/16 10:23 Plt Count 156 K/uL (130-400) 10/26/16 10:23 MPV 10.1 fl (7.2-11.7) 10/26/16 10:23 Neut % (Auto) 58.4 % (50.0-75.0) 10/26/16 10:23 Lymph % (Auto) 27.6 % (20.0-40.0) 10/26/16 10:23 Rankin % (Auto) 11.0 % (0.0-10.0) H 10/26/16 10:23 Eos % (Auto) 2.5 % (0.0-4.0) 10/26/16 10:23 Baso % (Auto) 0.5 % (0.0-2.0) 10/26/16 10:23 Neut # 3.1 K/uL (1.8-7.0) 10/26/16 10:23 Lymph # 1.5 K/uL (1.0-4.3) 10/26/16 10:23 Rankin # 0.6 K/uL (0.0-0.8) 10/26/16 10:23 Eos # 0.1 K/uL (0.0-0.7) 10/26/16 10:23 Baso # 0.0 K/uL (0.0-0.2) 10/26/16 10:23 Neutrophils % (Manual) 87 % (42-75) H 10/23/16 08:15 Band Neutrophils % 1 % (0-2) 10/23/16 08:15 Lymphocytes % (Manual) 8 % (20-50) L 10/23/16 08:15 Monocytes % (Manual) 4 % (0-10) 10/23/16 08:15 Platelet Estimate Normal (NORMAL) 10/23/16 08:15 Large Platelets Present 10/23/16 08:15 Giant Platelets Present 10/23/16 08:15 Hypochromasia (manual) Slight 10/23/16 08:15 Basophilic Stippling Slight 10/23/16 08:15 Anisocytosis (manual) Slight 10/23/16 08:15 pCO2 38 mm/Hg (35-45) 10/23/16 12:20 pO2 74 mm/Hg (80-100) L 10/23/16 12:20 HCO3 27.9 mmol/L (21-28) 10/23/16 12:20 ABG pH 7.47 (7.35-7.45) H 10/23/16 12:20 ABG Total CO2 28.9 mmol/L (22-28) H 10/23/16 12:20 ABG O2 Saturation 97.9 % (95-98) 10/23/16 12:20 ABG Base Excess 3.9 mmol/L (-2.0-3.0) H 10/23/16 12:20 New Test Yes 10/23/16 12:20 ABG Potassium 3.7 mmol/L (3.6-5.2) 10/23/16 12:20 VBG pH 7.38 (7.32-7.43) 10/23/16 08:20 VBG pCO2 51 mmHg (40-60) 10/23/16 08:20 VBG HCO3 26.5 mmol/L 10/23/16 08:20 VBG Total CO2 31.8 mmol/L (22-28) H 10/23/16 08:20 VBG O2 Sat (Calc) 49.8 % (40-65) 10/23/16 08:20 VBG Base Excess 3.9 mmol/L (0.0-2.0) H 10/23/16 08:20 VBG Potassium 4.2 mmol/L (3.6-5.2) 10/23/16 08:20 A-a O2 Difference 78.0 mm/Hg 10/23/16 12:20 Sodium 133.0 mmol/L (132-148) 10/23/16 12:20 Chloride 104.0 mmol/L (98-107) 10/23/16 12:20 Glucose 121 mg/dL (75-110) H 10/23/16 12:20 Lactate 0.8 mmol/L (0.7-2.1) 10/23/16 12:20 FiO2 28.0 % 10/23/16 12:20 Sodium 138 mmol/l (132-148) 10/26/16 10:23 Potassium 4.2 MMOL/L (3.6-5.0) 10/26/16 10:23 Chloride 101 mmol/L (98-107) 10/26/16 10:23 Carbon Dioxide 28 mmol/L (22-30) 10/26/16 10:23 Anion Gap 13 (10-20) 10/26/16 10:23 BUN 15 mg/dl (9-20) 10/26/16 10:23 Creatinine 0.9 mg/dL (0.8-1.5) 10/26/16 10:23 Est GFR ( Amer) > 60 10/26/16 10:23 Est GFR (Non-Af Amer) > 60 10/26/16 10:23 POC Glucose (mg/dL) 141 mg/dL (65-110) H 10/26/16 11:36 Random Glucose 161 mg/dL (75-110) H 10/26/16 10:23 Calcium 8.7 mg/dL (8.4-10.2) 10/26/16 10:23 Total Bilirubin 1.0 mg/dl (0.2-1.3) 10/26/16 10:23 AST 59 U/L (17-59) D 10/26/16 10:23 ALT 66 U/L (21-72) 10/26/16 10:23 Alkaline Phosphatase 60 U/L (38-126) 10/26/16 10:23 Troponin I 0.0250 ng/mL (0.00-0.120) 10/24/16 14:30 Total Protein 6.5 G/DL (6.3-8.2) 10/26/16 10:23 Albumin 3.5 g/dL (3.5-5.0) 10/26/16 10:23 Globulin 3.1 gm/dL (2.2-3.9) 10/26/16 10:23 Albumin/Globulin Ratio 1.1 (1.0-2.1) 10/26/16 10:23 Arterial Blood Potassium 3.7 mmol/L (3.6-5.2) 10/23/16 12:20 Venous Blood Potassium 4.2 mmol/L (3.6-5.2) 10/23/16 08:20 Urine Color Iris (YELLOW) 10/23/16 12:30 Urine Clarity Slighty-cloudy (Clear) 10/23/16 12:30 Urine pH 6.0 (5.0-8.0) 10/23/16 12:30 Ur Specific [place] 1.027 (1.003-1.030) 10/23/16 12:30 Urine Protein 30 mg/dL (NEGATIVE) 10/23/16 12:30 Urine Glucose (UA) Neg mg/dL (Normal) 10/23/16 12:30 Urine Ketones Trace mg/dL (NEGATIVE) 10/23/16 12:30 Urine Blood Small (NEGATIVE) 10/23/16 12:30 Urine Nitrate Negative (NEGATIVE) 10/23/16 12:30 Urine Bilirubin Small (NEGATIVE) 10/23/16 12:30 Urine Urobilinogen 0.2-1.0 mg/dL (0.2-1.0) 10/23/16 12:30 Ur Leukocyte Esterase Neg Vadim/uL (Negative) 10/23/16 12:30 Urine RBC (Auto) 10 /hpf (0-3) H 10/23/16 12:30 Urine Microscopic WBC 2 /hpf (0-5) 09/11/17 12:30 Ur Squamous Epith Cells < 1 /hpf (0-5) 10/23/16 12:30 Urine Bacteria Rare (<OCC) 10/23/16 12:30 Discharge Exam - Head Exam Head Exam: NORMAL INSPECTION Discharge Plan - Discharge Medications Prescriptions: Amoxicillin/Clavulanate [Augmentin 875 MG-125 MG] 1 tab PO BID #14 tab diltiaZEM [Cardizem] 60 mg PO Q6 #30 tab - Follow Up Plan Condition: FAIR Disposition: HOME/ ROUTINE Additional Instructions: pt was for dc to [facility] today but pt then refused. 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 spoke w/ dr dumont who recommends cardizem and asa for home. no lovenox or dig. f/u rmg rted prn, med sprer med rec. 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
== END 2016-10-26 16:25 | disposition home or self-care (01) | DRG 603 ==
LOC: H.ER 06:51 → H.ERHOLD 10:00 → H.TEL 14:37
PROVIDERS: ADMIT Family Medicine; ATTEND Family Medicine
DX: L03.116 Cellulitis of left lower limb (principal); I50.22 Chronic systolic (congestive) heart failure; I11.0 Hypertensive heart disease with heart failure; I48.91 Unspecified atrial fibrillation; E11.9 Type 2 diabetes mellitus without complications; E86.0 Dehydration; G20 Parkinson's disease; J45.909 Unspecified asthma, uncomplicated; E78.5 Hyperlipidemia, unspecified; M19.90 Unspecified osteoarthritis, unspecified site; E78.00 Pure hypercholesterolemia, unspecified; Z85.46 Personal history of malignant neoplasm of prostate; Z86.73 Personal history of transient ischemic attack (TIA), and cerebral infarction without residual deficits; Z87.891 Personal history of nicotine dependence; Z79.82 Long term (current) use of aspirin; Z79.84 Long term (current) use of oral hypoglycemic drugs

== ENCOUNTER 2017-03-22 14:26 | Emergency (ER) | payer MEDICARE, MEDICAID ==
[2017-03-22 14:27] VITALS: PULSE 136; BMI 29.2
[2017-03-22 14:31] VITALS: BP 144/88; PULSE 78; RESP 18; TEMP 98.5; O2SAT 96
--- NOTE | 2017-03-22 15:05 | ED PDOC ---
HPI: Trauma/Fall - HPI Time Seen by Provider: 03/22/17 14:43 Chief Complaint (Nursing): Trauma Chief Complaint (Provider): head laceration Additional Complaint(s): 81 yo male accompanied by his home health aide presents to ED w/ complaints of laceration of head s/p fall and hit his head with corner of the bathroom about an hour ago. Pt reports he lost his balance on the way to bathroom and hit his head. Denies LOC, blurry vision. The events was witnessed by his aide. Denies chest pain, dyspnea, nausea, vomiting or focal weakness. Past Medical History Vital Signs: Last Vital Signs Temp 98.5 F 03/22/17 14:28 Pulse 78 03/22/17 14:28 Resp 18 03/22/17 14:28 BP 144/88 03/22/17 14:28 Pulse Ox 96 03/22/17 14:28 - Medical History PMH: Arthritis, Asthma, Atrial Fibrillation, Bronchitis, Cardia Arrhythmia (a fib dipti), CHF, Diabetes, Diverticulitis, Gastritis, Gall Bladder Disease, Hiatal Hernia, HTN, Hypercholesterolemia, Hyperlipidemia, Malignancy (Colon cancer), Parkinson's Disease, TIA Denies: Chronic Kidney Disease - Surgical History Surgical History: Cholecystectomy - Family History Family History: States: Unknown Family Hx - Immunization History Hx Tetanus Toxoid Vaccination: No Hx Influenza Vaccination: No Hx Pneumococcal Vaccination: No - Home Medications Home Medications: Ambulatory Orders Medication Instructions Recorded Aspirin [Ecotrin] 81 mg PO DAILY 03/23/15 Ergocalciferol (Vitamin D2) 50,000 unit PO QWK 03/23/15 [Vitamin D2] Lisinopril 5 mg PO DAILY 03/23/15 Metformin HCl 500 mg PO BID 03/23/15 Carbidopa/Levodopa 25/100 mg 1 tab PO TID #0 tab 12/03/15 [Sinemet] Nabumetone [Relafen] 500 mg PO DAILY #0 tab 12/03/15 Omeprazole 20 mg PO DAILY 09/13/16 Pramipexole Di-HCl [Pramipexole 0.25 mg PO TID 09/13/16 Dihydrochloride] Simvastatin 20 mg PO HS 09/13/16 Tamsulosin [Flomax] 0.4 mg PO DAILY 09/13/16 Amoxicillin/Clavulanate [Augmentin 1 tab PO BID #14 tab 10/26/16 875 MG-125 MG] diltiaZEM [Cardizem] 60 mg PO Q6 #30 tab 10/26/16 Acetaminophen [Pain Reliever] 500 mg PO Q4 #10 tablet 03/22/17 - Allergies Allergies/Adverse Reactions: Allergies Allergy/AdvReac Type Severity Reaction Status Date / Time No Known Allergies Allergy Verified 03/22/17 14:27 Review of Systems Constitutional: Negative for: Fever Eyes: Negative for: Vision Change Cardiovascular: Negative for: Chest Pain, Palpitations Respiratory: Negative for: Shortness of Breath Gastrointestinal: Negative for: Nausea, Vomiting Neurological: Negative for: Weakness, Numbness, Headache Physical Exam - Physical Exam Appears: Positive for: No Acute Distress Eye Exam: Positive for: Normal appearance, EOMI, PERRL ENT: Positive for: Normal ENT Inspection Neck: Positive for: Normal Cardiovascular/Chest: Positive for: Regular Rate, Rhythm Respiratory: Positive for: Normal Breath Sounds. Negative for: Crackles Gastrointestinal/Abdominal: Positive for: Bowel Sounds, Soft. Negative for: Tenderness Neurologic/Psych: Positive for: Alert, Oriented. Negative for: Aphasia, Facial Droop Comments: 1.5 cm linear laceration on right sided mid parietal scalp. No gaping wound or FB seen. - Laboratory Results Result Diagrams: 03/22/17 15:20 03/22/17 15:20 - ECG O2 Sat by Pulse Oximetry: 96 - Progress ED Course And Treament: Assessment: 81 yo male accompanied by his home health aide presents to ED for head laceration s/p fall and hit his head with corner of the bathroom door. Plan: CT OF HEAD W/O CONTRAST CERVICAL CT W/O CONTRAST EKG PELVIS X-RAY CBC CMP PT/INR TROPONIN I BAL Case d/w ED Attending Dr. Tran Disposition - Clinical Impression Clinical Impression: Head injury, Scalp laceration - Disposition Referrals: Viraj Nicole MD [Staff Provider] - Disposition Time: 18:43 Condition: STABLE Additional Instructions: Return to ER for any new or worsening symptoms. Have stitches removed in 6 days. Prescriptions: Acetaminophen [Pain Reliever] 500 mg PO Q4 #10 tablet Instructions: Care For Your Stitches (ED), Laceration (ED), Fall Prevention for Older Adults (ED), Head Injury (ED) Forms: [employer] (Uzbek) Print Language: MONGOLIAN Procedure: Wound Repair - Time Performed Time Performed: 17:20 - Consent Obtained Consent obtained: Verbal - Performed by Performed by: Mid-level Provider - Indications Indication(s):: Laceration - Location Location:: Right, Scalp Shape:: Linear Dimensions Length cm: 1.5 cm - Anesthetic Technique Anesthetic Technique: Topical Local/Regional Anesthetic:: Lidocaine 2% (4 cc) - Irrigated Irrigated with ml of normal saline: 10 CC - Wound repair method Sutures:: # (4 cc of 2% lidocaine applied to the wound area. Wound was irrigated with 10 cc ns. #4 sutures were used to closed the wound. 3 sutures were placed with proper wound approximation. Pt tolerated the proceure well. )
[2017-03-22 15:35] LABS: BASO % 0.8 % (0.0-2.0); EOS # 0.1 K/uL (0.0-0.7); EOS % 1.8 % (0.0-4.0); HEMOGLOBIN 12.6 g/dL (12.0-18.0); LYMPH % 21.9 % (20.0-40.0); MEAN CORPUSCULAR HEMOGLOBIN 29.7 pg (27.0-31.0); MEAN PLATELET VOLUME 9.3 fl (7.2-11.7); MONO # 0.6 K/uL (0.0-0.8); MONO % 13.6 % (0.0-10.0); NEUT # 2.9 K/uL (1.8-7.0); NEUT % 61.9 % (50.0-75.0); NRBC % 0.2 % (0.0-0.0); RBC 4.23 Mil/uL (4.40-5.90); RED CELL DISTRIBUTION WIDTH 14.8 % (11.5-14.5); WHITE BLOOD COUNT 4.7 K/uL (4.8-10.8)
--- NOTE | 2017-03-22 15:51 | RAD ---
PROCEDURE: Radiographs of the pelvis. HISTORY: fall COMPARISON: None. FINDINGS: BONES: Pelvic Bones: No acute fracture. Hips: Joint space narrowing with degenerative changes. JOINTS: Sacroiliac Joints: Unremarkable. Pubic Symphysis: Unremarkable. OTHER FINDINGS: None. IMPRESSION: No demonstrated fracture or dislocation. Degenerative changes.
[2017-03-22 15:52] LABS: ALB/GLOB RATIO 1.4 (1.0-2.1); ALBUMIN 4.1 g/dL (3.5-5.0); ALT/SGPT 25 U/L (21-72); AST/SGOT 16 U/L (17-59); BLOOD UREA NITROGEN 20 mg/dl (9-20); CALCIUM 9.5 mg/dL (8.4-10.2); GFR AFRICAN-AMERICAN > 60; GFR NON-AFRICAN AMERICAN > 60
--- NOTE | 2017-03-22 16:11 | CT ---
PROCEDURE: CT HEAD WITHOUT CONTRAST. HISTORY: r/o ICH COMPARISON: CT head dated 10/23/2016. TECHNIQUE: Axial computed tomography images were obtained through the head/brain without intravenous contrast. Radiation dose: Total exam DLP = 888.8 mGy-cm. This CT exam was performed using one or more of the following dose reduction techniques: Automated exposure control, adjustment of the mA and/or kV according to patient size, and/or use of iterative reconstruction technique. FINDINGS: HEMORRHAGE: No intracranial hemorrhage. BRAIN: No mass effect or edema. Left thalamic lacunar infarction redemonstrated. Atrophy. Chronic periventricular white matter microvascular ischemic changes. VENTRICLES: Mildly prominent. No hydrocephalus. CALVARIUM: Unremarkable. PARANASAL SINUSES: Unremarkable as visualized. No significant inflammatory changes. MASTOID AIR CELLS: Unremarkable as visualized. No inflammatory changes. OTHER FINDINGS: None. IMPRESSION: No acute intracranial pathology.
--- NOTE | 2017-03-22 16:18 | CT ---
PROCEDURE: CT Cervical Spine without contrast HISTORY: Trauma COMPARISON: CT cervical spine dated 03/29/2015. TECHNIQUE: Axial computed tomography images were obtained of the cervical spine without the use of intravenous contrast. Coronal and sagittal reformatted images were created and reviewed. Radiation dose: Total exam DLP = 486.4 mGy-cm. This CT exam was performed using one or more of the following dose reduction techniques: Automated exposure control, adjustment of the mA and/or kV according to patient size, and/or use of iterative reconstruction technique. FINDINGS: VERTEBRAE: No fracture. Normal alignment. No destructive bony lesion. DISCS/SPINAL CANAL/NEURAL FORAMINA: Multilevel disc space narrowing with disc osteophyte complexes. No significant central canal stenosis. PARASPINAL SOFT TISSUES: Unremarkable. OTHER FINDINGS: None. IMPRESSION: No acute fracture. Multilevel degenerative changes.
[2017-03-22 16:38] LABS: PARTIAL THROMBOPLASTIN TIME 26.2 Seconds (25.6-37.1); PROTHROMBIN TIME 10.5 Seconds (9.8-13.1)
[2017-03-22] MEDS ORDERED: Lidocaine 2% Inj (20ml) IJ ONE (17:11)
--- NOTE | 2017-03-23 11:25 | CARD ---
APPROVED REPORT EKG Measurement Heart [id number] [place] [id number] <Conclusion> Normal sinus rhythm Possible Left atrial enlargement Borderline ECG
== END 2017-03-22 19:48 | disposition home or self-care (01) ==
LOC: H.ER 14:26
DX: S01.01XA Laceration without foreign body of scalp, initial encounter (principal); W22.8XXA Striking against or struck by other objects, initial encounter; Y92.002 Bathroom of unspecified non-institutional (private) residence as the place of occurrence of the external cause; E11.9 Type 2 diabetes mellitus without complications; E78.00 Pure hypercholesterolemia, unspecified; G20 Parkinson's disease; I11.0 Hypertensive heart disease with heart failure; Z79.82 Long term (current) use of aspirin; Z85.038 Personal history of other malignant neoplasm of large intestine; Z86.73 Personal history of transient ischemic attack (TIA), and cerebral infarction without residual deficits
CPT/HCPCS: 12001; 70450; 72125; 72170; 80053; 84484; 85025; 85610; 85730; 93005; 99284; G0480

== ENCOUNTER 2017-05-28 08:12 | Inpatient (IN) | payer MEDICARE, MEDICAID ==
[2017-05-28 08:13] VITALS: PULSE 136; BMI 29.2
[2017-05-28] MEDS ORDERED: NICARDIPINE ONE (08:53)
[2017-05-28] MEDS ORDERED: DOPamine 400mg/250ml D5W 400 MG/250 ML BAG IV ONE ×3 (08:55→12:00)
[2017-05-28] MEDS ORDERED: Etomidate 20 mg/10ml Inj IV ONE ×2 (08:58→09:29)
[2017-05-28] MEDS ORDERED: Digoxin 500 mcg/2ml (0.5 mg/2ml) Inj ONE (09:16)
[2017-05-28] MEDS ORDERED: Sodium Chloride 0.9% 1,000 ML IV STA (09:29)
[2017-05-28 09:38] LABS: VENOUS BLOOD GAS PCO2 35 mmHg (40-60); VENOUS BLOOD GAS PO2 29 mm/Hg (30-55); VENOUS BLOOD PH 7.55 (7.32-7.43)
[2017-05-28 09:41] LABS: EOS % 0.1 % (0.0-4.0); HEMOGLOBIN 16.4 g/dL (12.0-18.0); LYMPH # 0.6 K/uL (1.0-4.3); LYMPH % 6.3 % (20.0-40.0); MEAN CELL VOLUME 90.9 fl (80.0-94.0); MEAN CORPUSCULAR HEMOGLOBIN 30.4 pg (27.0-31.0); MEAN CORPUSCULAR HGB CONC 33.4 g/dL (33.0-37.0); MEAN PLATELET VOLUME 9.9 fl (7.2-11.7); MONO # 1.3 K/uL (0.0-0.8); MONO % 13.8 % (0.0-10.0); NEUT # 7.8 K/uL (1.8-7.0); NEUT % 79.8 % (50.0-75.0); NRBC % 0.1 % (0.0-0.0); PLATELET COUNT 246 K/uL (130-400); RED CELL DISTRIBUTION WIDTH 15.1 % (11.5-14.5); WHITE BLOOD COUNT 9.7 K/uL (4.8-10.8)
[2017-05-28] MEDS ORDERED: Ciprofloxacin 400mg/200ml D5W 400 MG/200 ML BAG IVPB STA (09:42)
[2017-05-28] MEDS ORDERED: Piperacillin/Tazobact 3.375 GM in Sodium Chloride 0.9% 100 ML IVPB STA (09:42)
[2017-05-28] MEDS ORDERED: Piperacillin/Tazobact 3.375 gm Inj IVPB ONE (09:45)
[2017-05-28] MEDS ORDERED: Ciprofloxacin 400mg/200ml D5W 400 MG/200 ML BAG IVPB ONE (09:45)
[2017-05-28 09:52] LABS: INR 1.1 (0.9-1.2); PARTIAL THROMBOPLASTIN TIME 26.2 Seconds (25.6-37.1); PROTHROMBIN TIME 11.7 Seconds (9.8-13.1)
[2017-05-28] MEDS ORDERED: Digoxin 500 mcg/2ml (0.5 mg/2ml) Inj IVP ONE (10:00)
[2017-05-28 10:01] LABS: ALB/GLOB RATIO 1.2 (1.0-2.1); ALBUMIN 4.8 g/dL (3.5-5.0); CALCIUM 9.2 mg/dL (8.4-10.2)
[2017-05-28] MEDS ORDERED: Propofol 10 mg/ml 1,000 MG/100 ML VIAL ONE (10:03)
[2017-05-28] MEDS ORDERED: Amiodarone 150mg/3 ml vial ONE (10:13)
[2017-05-28 10:14] LABS: TROPONIN I 0.056 ng/mL (0.00-0.120)
[2017-05-28] MEDS ORDERED: metroNIDAZOLE 500mg/100ml NS 100 ML IVPB STA (10:23)
[2017-05-28] MEDS ORDERED: Potassium Chloride 20 mEq 100 ML IVPB ONE (10:24)
--- NOTE | 2017-05-28 10:26 | RAD ---
HISTORY: Sepsis Patient COMPARISON: 12/2016 FINDINGS: LUNGS: No active pulmonary disease. PLEURA: No significant pleural effusion identified, no pneumothorax apparent. CARDIOVASCULAR: No radiographic findings to suggest acute or significant cardiovascular disease. Venous access catheter in satisfactory position. OSSEOUS STRUCTURES: No significant abnormalities. VISUALIZED UPPER ABDOMEN: Normal. OTHER FINDINGS: Satisfactory position of endotracheal tube. IMPRESSION: No active pulmonary disease. Support apparatus in satisfactory position.
--- NOTE | 2017-05-28 10:27 | RAD ---
HISTORY: Feculent vomiting COMPARISON: No prior. FINDINGS: BOWEL: Dilated proximal small bowel consistent with early/incomplete small bowel obstruction. BONES: Normal. OTHER FINDINGS: Nasogastric tube identified in satisfactory position in the stomach. IMPRESSION: Early/incomplete small bowel obstruction. No identifiable free air.
[2017-05-28] MEDS ORDERED: Amiodarone 900 MG in Dextrose 5% In Water 500 ML IVPB SCH ×2 (10:29→10:30)
[2017-05-28] MEDS ORDERED: metroNIDAZOLE 500mg/100ml NS 100 ML IVPB ONE (10:37)
--- NOTE | 2017-05-28 10:41 | ED PDOC ---
HPI: Abdomen Time Seen by Provider: 05/28/17 08:18 Chief Complaint (Nursing): Altered Mental Status History Per: EMS Onset/Duration Of Symptoms: Unknown Current Symptoms Are (Timing): Still Present Severity: Moderate Quality Of Discomfort: Unable To Describe Additional Complaint(s): Brought by EMS after pt called EMS for abd pain. Found on floor at home although pt told EMS he did not fall. On arrival to ED. HR 180 and regular with BP 66 systoloc. No peripheral access available. Right IJ placed with US . Pt given Adenosinr 6 mg and 12 mg which temporarily slowed HR to reveal A flutter. Unable to give beta alex or Cardizem due to hypotension. No response in HR toDig 0.5 mg. Fluid bolus given and started on Dopamine drip. Pt intubated with fecaloid material vomited while intubating. Cardioversion with 200 J attempted x 2 with brief conversion to sinus rhythm but pt immediately returned to afib with RVR. Amiodarone 300 mg IV given which slowed HR to 90-100 with RVR. Pt started on Amiodarone drip. HR 100-120 with RVR. BP 70 systolic. 3 L IVF given and Dopamine drip titrated. Past Medical History Vital Signs: Last Vital Signs Temp Pulse 154 H 05/28/17 10:30 Resp 16 05/28/17 10:30 BP 73/48 L 05/28/17 10:30 Pulse Ox 100 05/28/17 11:39 - Medical History PMH: Arthritis, Asthma, Atrial Fibrillation, Bronchitis, Cardia Arrhythmia (a fib dipti), CHF, Diabetes, Diverticulitis, Gastritis, Gall Bladder Disease, Hiatal Hernia, HTN, Hypercholesterolemia, Hyperlipidemia, Malignancy (Colon cancer), Parkinson's Disease, TIA Denies: Chronic Kidney Disease - Surgical History Surgical History: Cholecystectomy - Family History Family History: States: Unknown Family Hx - Immunization History Hx Tetanus Toxoid Vaccination: No Hx Influenza Vaccination: No Hx Pneumococcal Vaccination: No - Home Medications Home Medications: Ambulatory Orders Medication Instructions Recorded Aspirin [Ecotrin] 81 mg PO DAILY 03/23/15 Ergocalciferol (Vitamin D2) 50,000 unit PO QWK 03/23/15 [Vitamin D2] Lisinopril 5 mg PO DAILY 03/23/15 Metformin HCl 500 mg PO BID 03/23/15 Carbidopa/Levodopa 25/100 mg 1 tab PO TID #0 tab 12/03/15 [Sinemet] Nabumetone [Relafen] 500 mg PO DAILY #0 tab 12/03/15 Omeprazole 20 mg PO DAILY 09/13/16 Pramipexole Di-HCl [Pramipexole 0.25 mg PO TID 09/13/16 Dihydrochloride] Simvastatin 20 mg PO HS 09/13/16 Tamsulosin [Flomax] 0.4 mg PO DAILY 09/13/16 Amoxicillin/Clavulanate [Augmentin 1 tab PO BID #14 tab 10/26/16 875 MG-125 MG] diltiaZEM [Cardizem] 60 mg PO Q6 #30 tab 10/26/16 Acetaminophen [Pain Reliever] 500 mg PO Q4 #10 tablet 03/22/17 - Allergies Allergies/Adverse Reactions: Allergies Allergy/AdvReac Type Severity Reaction Status Date / Time No Known Allergies Allergy Verified 03/22/17 14:27 Review of Systems Review Of Systems: ROS cannot be obtained secondary to pt's inabilty to answer questions. Physical Exam - Reviewed Nursing Documentation Reviewed: Yes Vital Signs Reviewed: Yes - Physical Exam Appears: Positive for: In Acute Distress Head Exam: Positive for: ATRAUMATIC, NORMAL INSPECTION, NORMOCEPHALIC Skin: Positive for: Normal Color, Warm, DRY Eye Exam: Positive for: EOMI, Normal appearance, PERRL ENT: Positive for: Normal ENT Inspection Neck: Positive for: Normal, Painless ROM Cardiovascular/Chest: Positive for: Regular Rate, Rhythm Respiratory: Positive for: CNT, Normal Breath Sounds Gastrointestinal/Abdominal: Positive for: Distended. Negative for: Bowel Sounds (Diminished) Back: Positive for: Normal Inspection Extremity: Positive for: Normal ROM Neurologic/Psych: Negative for: Alert (Lethargic arousable), Motor/Sensory Deficits (moving all ext) - Laboratory Results Result Diagrams: 05/28/17 08:40 05/28/17 08:40 - ECG ECG Rhythm: Positive for: Atrial Fibrillation O2 Sat by Pulse Oximetry: 100 - Progress Re-evaluation Time: 10:00 Condition: Unchanged - Critical Care Total Time (In Min): 60 Procedures - Central Line Central Line Lumen: triple Central Line Procedure: betadine prep, sterile drapes applied, sterile dressing applied Central Line Postion: internal jugular (R) Complications: none Central Line Post Position: good blood return, position confirmed w/ CXR - Intubation Intubation Method: orotracheal Tube Size (cm): 7.5 Breath Sounds after Intubation: equal Intubation Complications: no complications, apparent aspiration Post Intubation Xray: Yes Disposition - Clinical Impression Clinical Impression: Sepsis, Small bowel obstruction, Afib - Patient ED Disposition Is Patient to be Admitted: Yes - Disposition Disposition Time: 12:23 Condition: CRITICAL - Pt Status Changed To: Hospital Disposition Of: Inpatient - Admit Certification Admit to Inpatient:: After my assessment, the patient will require hospitalization for at least two midnights. This is because of the severity of symptoms shown, intensity of services needed, and/or the medical risk in this patient being treated as an outpatient. - POA Present On Arrival: None
[2017-05-28] MEDS ORDERED: AMIODARONE IV ONE (10:45)
[2017-05-28 10:51] LABS: SQUAMOUS EPITHIAL 1 /hpf (0-5); URINE BILIRUBIN NEGATIVE (NEGATIVE); URINE BLOOD SMALL (NEGATIVE); URINE CLARITY CLOUDY (Clear); URINE COLOR AMBER (YELLOW); URINE GLUCOSE (UA) NEG (Normal); URINE LEUKOCYTE ESTERASE NEG Leu/uL (Negative); URINE PROTEIN NEGATIVE (NEGATIVE); URINE UROBILINOGEN 0.2-1.0 mg/dL (0.2-1.0)
--- NOTE | 2017-05-28 10:54 | CP.PCM.CON ---
History of Present Illness - History of Present Illness History of Present Illness: 81 y.o. male currently intubated and not giving history so most of the history was obtained from ER team. Patient called ambulance c/o abdominal pain and was found altered by EMS. In ER patient was found to be hypotensive and tachycardic to almost 180, patient was shocked few times per ER attending. Currently still tachycardic to 140's and hypotensive to 80's systolic. Patient was found to have thick gastric content upon insertion of the NG tube. Currently patient is on Amiodarone drip. Patient had abdominal X-Ray showing possible bowel obstruction, no signs of free air on Chest X-Ray. Past Patient History - Infectious Disease Hx of Infectious Diseases: None - Past Medical History & Family History Past Medical History?: Yes - Past Social History Smoking Status: Former Smoker - CARDIAC Hx Atrial Fibrillation: Yes Hx Cardia Arrhythmia: Yes (a fib dipti) Hx Congestive Heart Failure: Yes Hx Hypercholesterolemia: Yes Hx Hypertension: Yes - PULMONARY Hx Asthma: Yes Hx Bronchitis: Yes - NEUROLOGICAL Hx Parkinson's Disease: Yes Hx Transient Ischemic Attacks (TIA): Yes - HEENT Hx HEENT Problems: Yes Other/Comment: wears glasses - RENAL Hx Chronic Kidney Disease: No - ENDOCRINE/METABOLIC Hx Endocrine Disorders: Yes Hx Diabetes Mellitus Type 2: Yes - HEMATOLOGICAL/ONCOLOGICAL Hx Blood Disorders: Yes Hx Cancer: Yes (prostate) - INTEGUMENTARY Hx Dermatological Problems: Yes Hx Cellulitis: Yes (history of) - MUSCULOSKELETAL/RHEUMATOLOGICAL Hx Arthritis: Yes - GASTROINTESTINAL Hx Diverticulitis: Yes Hx Gall Bladder Disease: Yes Hx Gastritis: Yes - GENITOURINARY/GYNECOLOGICAL Hx Genitourinary Disorders: Yes Hx Incontinence: Yes Hx Prostate Problems: Yes - PSYCHIATRIC Hx Psychophysiologic Disorder: No Hx Substance Use: No - SURGICAL HISTORY Hx Cholecystectomy: Yes - ANESTHESIA Hx Anesthesia: Yes Hx Anesthesia Reactions: No Hx Malignant Hyperthermia: No Meds Allergies/Adverse Reactions: Allergies Allergy/AdvReac Type Severity Reaction Status Date / Time No Known Allergies Allergy Verified 03/22/17 14:27 - Medications Medications: Current Medications Metronidazole (Flagyl 500mg/100ml Ns) 100 mls @ 100 mls/hr IVPB STAT STA PRN Reason: Protocol Stop: 05/28/17 11:22 Last Admin: 05/28/17 10:36 Dose: 100 mls/hr Potassium Chloride (Potassium Chloride 20 Meq/100 Ml) 100 mls @ 50 mls/hr IVPB ONCE ONE Stop: 05/28/17 12:23 Amiodarone HCl 450 mg/ (Dextrose) 259 mls @ 34.53 mls/hr IVPB .[id number] JUDI; 1 MG /MIN PRN Reason: Protocol Amiodarone HCl 300 mg/ IV (SYRINGE) 6 mls @ 72 mls/hr IV ONCE ONE Stop: 05/28/17 10:49 Physical Exam - Constitutional Appears: In Acute Distress Additional comments: intubated - Head Exam Head Exam: ATRAUMATIC, NORMAL INSPECTION, NORMOCEPHALIC - ENT Exam ENT Exam: Mucous Membranes Dry - Respiratory Exam Respiratory Exam: Rhonchi - Cardiovascular Exam Cardiovascular Exam: Tachycardia, +S1, +S2 - GI/Abdominal Exam GI & Abdominal Exam: Soft Additional comments: soft, distended, BS hypoactive, no rebound, no guarding, no rigidity, well healed right paramedian scar - Rectal Exam Rectal Exam: Deferred - Skin Skin Exam: Dry, Intact, Normal Color, Warm Results - Vital Signs Recent Vital Signs: Last Vital Signs Temp Pulse 154 H 05/28/17 10:30 Resp 16 05/28/17 10:30 BP 73/48 L 05/28/17 10:30 Pulse Ox 100 05/28/17 10:44 - Labs Result Diagrams: 05/28/17 08:40 05/28/17 08:40 Labs: Laboratory Results - last 24 hr 05/28/17 05/28/17 05/28/17 08:20 08:40 08:40 WBC 9.7 D RBC 5.40 Hgb 16.4 D Hct 49.1 MCV 90.9 MCH 30.4 MCHC 33.4 RDW 15.1 H Plt Count 246 MPV 9.9 Neut % (Auto) 79.8 H Lymph % (Auto) 6.3 L [place] % (Auto) 13.8 H Eos % (Auto) 0.1 Baso % (Auto) 0.0 Neut # (Auto) 7.8 H Lymph # (Auto) 0.6 L [place] # (Auto) 1.3 H Eos # (Auto) 0.0 Baso # (Auto) 0.0 PT INR APTT pO2 VBG pH VBG pCO2 VBG HCO3 VBG Total CO2 VBG O2 Sat (Calc) VBG Base Excess A-a O2 Difference Glucose Lactate FiO2 PEEP Crit Value Called To Crit Value Called By Crit Value Read Back Blood Gas Notified Time Sodium 142 Potassium 3.3 L Chloride 84 L Carbon Dioxide 27 Anion Gap 34 H BUN 80 H Creatinine 3.4 H Est GFR ( Amer) 21 Est GFR (Non-Af Amer) 18 POC Glucose (mg/dL) 216 H Random Glucose 240 H Calcium 9.2 Phosphorus 7.5 H Magnesium 2.2 Total Bilirubin 1.8 H AST 37 ALT 43 Alkaline Phosphatase 57 Troponin I 0.0560 Total Protein 8.7 H Albumin 4.8 Globulin 3.9 Albumin/Globulin Ratio 1.2 05/28/17 05/28/17 08:40 09:26 WBC RBC Hgb Hct MCV MCH MCHC RDW Plt Count MPV Neut % (Auto) Lymph % (Auto) [place] % (Auto) Eos % (Auto) Baso % (Auto) Neut # (Auto) Lymph # (Auto) [place] # (Auto) Eos # (Auto) Baso # (Auto) PT 11.7 INR 1.1 APTT 26.2 pO2 29 L VBG pH 7.55 H VBG pCO2 35 L VBG HCO3 29.9 VBG Total CO2 31.7 H VBG O2 Sat (Calc) 57.4 VBG Base Excess 8.0 H A-a O2 Difference 640.0 Glucose 231 H Lactate 8.0 H* FiO2 100.0 PEEP 5 Crit Value Called To Dr raj kahn Crit Value Called By 15 Crit Value Read Back Y Blood Gas Notified Time 938 Sodium > 200.0 H* Potassium Chloride 112.0 H Carbon Dioxide Anion Gap BUN Creatinine Est GFR ( Amer) Est GFR (Non-Af Amer) POC Glucose (mg/dL) Random Glucose Calcium Phosphorus Magnesium Total Bilirubin AST ALT Alkaline Phosphatase Troponin I Total Protein Albumin Globulin Albumin/Globulin Ratio - Imaging and Cardiology Abdominal x-ray Status: Image reviewed by me, Report reviewed by me Assessment & Plan - Assessment and Plan (Free Text) Assessment: 81 y.o. male tachycardic and hypotensive on Amiodarone drip with abdominal distension Plan: - Keep NPO - IV fluids - NG tube to suction - Ventilator support - ICU admission - When stable will need CT scan of the abdomen and pelvis - At present time patient is not a surgical candidate because of the hydrodynamic instability - Will follow
[2017-05-28] MEDS ORDERED: Propofol 10 mg/ml Inj (20 ML) IV ONE (10:57)
--- NOTE | 2017-05-28 11:35 | CARD ---
APPROVED REPORT EKG Measurement Heart [id number] <Conclusion> Atrial fibrillation with rapid ventricular response T wave abnormality, consider inferior ischemia Abnormal ECG
--- NOTE | 2017-05-28 11:36 | CARD ---
APPROVED REPORT EKG Measurement Heart [id number] <Conclusion> Poor data quality, interpretation may be adversely affected Supraventricular tachycardia Marked ST abnormality, possible inferior subendocardial injury Abnormal ECG
[2017-05-28 11:54] LABS: BANDS 4 % (0-2); LYMPHOCYTE 5 % (20-50); MONOCYTE 14 % (0-10); NEUTROPHIL 77 % (42-75); TOTAL CELLS COUNTED 100
[2017-05-28 11:57] LABS: ANISOCYTOSIS SLIGHT; LARGE PLATELETS PRESENT; PLATELET ESTIMATE NORMAL (NORMAL)
[2017-05-28] MEDS ORDERED: Potassium Chloride 20 mEq 100 ML ONE (12:10)
[2017-05-28 12:52] LABS: VENOUS BLOOD GAS BASE EXCESS -3.2 mmol/L (0.0-2.0); VENOUS BLOOD GAS PCO2 68 mmHg (40-60); VENOUS BLOOD GAS PO2 39 mm/Hg (30-55)
--- NOTE | 2017-05-28 13:55 | CP.CCUPN ---
CCU Subjective - Physician Review Subjective (Free Text): 05/28/17 The patient was Seen/interviewed and examined by me at the bedside in the ER and ICU, Medical records reviewed and Management issues were discussed and formulated with the house staff. Events reviewed 81 Years old Male with Multiple medical conditions including Cardiac Arrhythmia (Atrial Fibrillation), CHF, Diabetes, Diverticulitis, Gastritis, Gall Bladder Disease, Hiatal Hernia, HTN, Hypercholesterolemia, Arthritis, Asthma, Bronchitis , Malignancy (Colon cancer), TIA and Parkinson's Disease Who was brought in to Emergency department for evaluation of abdominal pain. He was found on floor at home although pt told EMS that he did not fall. On arrival to ED, HR 180 and regular with BP 66 systoloc. Right IJ placed with US and Pt given Adenosinr 6 mg and 12 mg which temporarily slowed HR to reveal A flutter, No response in HR toDig 0.5 mg. Fluid bolus given and started on Dopamine drip. Pt intubated with fecaloid material vomited while intubating. Cardioversion with 200 J attempted x 2 with brief conversion to sinus rhythm but pt immediately returned to afib with RVR. Amiodarone 300 mg IV given which slowed HR to 90-100 with RVR. Pt started on Amiodarone drip. HR 100-120 with RVR. BP 70 systolic. 3 L IVF given and Dopamine drip titrated. 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 PRVC AC12 TV450 FiO2 100% PEEP5. Resp nonlabored spontaneous resp noted. On Vasopressors, with Levophed (off dopamine), hemodynamically unstable CCU Objective - Vital Signs / Intake & Output Vital Signs (Last 4 hours): Vital Signs Pulse Resp BP Pulse Ox 05/28/17 12:23 100 05/28/17 10:30 154 H 16 73/48 L Intake and Output (Last 8hrs): Intake & Output 05/27/17 05/28/17 05/28/17 22:59 06:59 14:59 Output Total 550 Balance -550 Weight 165 lb Output: Gastric Drainage 550 - Physical Exam Physical Exam Limitations: Positive for: Altered Mental Status, Clinical Condition Head: Positive for: Atraumatic, Normocephalic. Negative for: Tenderness, Contusion Pupils: Positive for: PERRL. Negative for: Sluggish Extroacular Muscles: Positive for: EOMI Conjunctiva: Positive for: Normal. Negative for: Injected, Icteric Pharnyx: Positive for: Normal Nose (External): Positive for: Atraumatic Nose (Internal): Positive for: Normal Inspection Neck: Positive for: Normal Range of Motion, Trachea Midline. Negative for: Meningeal Signs, MIDLINE TENDERNESS, Paraspinal Tenderness, JVD, Lymphadenopathy , Bruit, Other Respiratory/Chest: Positive for: Respiratory Distress, Accessory Muscle Use, Decreased Breath Sounds, Rhonchi. Negative for: Good Air Exchange, Rales Cardiovascular: Positive for: Regular Rate and Rhythm, Irregular Rhythm, Peripheal Pulses Present, Tachycardic Abdomen: Positive for: Tenderness, Distention, Peritoneal Signs. Negative for: Normal Bowel Sounds ( Hypoactive Bowel Sounds), Rebound, Guarding Upper Extremity: Positive for: Normal Inspection, NORMAL PULSES. Negative for: Cyanosis, Edema, Tenderness, Swelling Lower Extremity: Positive for: Normal Inspection, NORMAL PULSES, Normal ROM. Negative for: Edema, CALF TENDERNESS, Cyanosis Neurological: Positive for: Other (Unable to fully perform, Pt orally intubated , uncomfortable) - Medications Active Medications: Active Medications Generic Name Dose Route Start Last Admin Trade Name Freq PRN Reason Stop Dose Admin Amiodarone HCl 450 mg/ 259 mls @ 34.53 mls/hr 05/28/17 10:45 05/28/17 11:10 Dextrose IVPB 34.53 mls/hr .[id number] JUDI Administration Protocol 1 MG/MIN Norepinephrine Bitartrate 4 mg 254 mls @ 9.52 mls/hr 05/28/17 12:30 / Dextrose IV .Q24H JUDI Protocol 2.5 MCG/MIN - Patient Studies Lab Studies: Lab Studies 05/28/17 05/28/17 05/28/17 Range/Units 12:48 10:05 09:26 WBC (4.8-10.8) K/uL RBC (4.40-5.90) Mil/uL Hgb (12.0-18.0) g/dL Hct (35.0-51.0) % MCV (80.0-94.0) fl MCH (27.0-31.0) pg MCHC (33.0-37.0) g/dL RDW (11.5-14.5) % Plt Count (130-400) K/uL MPV (7.2-11.7) fl Neut % (Auto) (50.0-75.0) % Lymph % (Auto) (20.0-40.0) % Swain % (Auto) (0.0-10.0) % Eos % (Auto) (0.0-4.0) % Baso % (Auto) (0.0-2.0) % Neut # (Auto) (1.8-7.0) K/uL Lymph # (Auto) (1.0-4.3) K/uL Swain # (Auto) (0.0-0.8) K/uL Eos # (Auto) (0.0-0.7) K/uL Baso # (Auto) (0.0-0.2) K/uL Neutrophils % (Manual) (42-75) % Band Neutrophils % (0-2) % Lymphocytes % (Manual) (20-50) % Monocytes % (Manual) (0-10) % Platelet Estimate (NORMAL) Large Platelets Anisocytosis (manual) PT (9.8-13.1) Seconds INR (0.9-1.2) APTT (25.6-37.1) Seconds pO2 39 29 L (30-55) mm/Hg VBG pH 7.20 L 7.55 H (7.32-7.43) VBG pCO2 68 H* 35 L (40-60) mmHg VBG HCO3 21.3 29.9 mmol/L VBG Total CO2 28.7 H 31.7 H (22-28) mmol/L VBG O2 Sat (Calc) 62.0 57.4 (40-65) % VBG Base Excess -3.2 L 8.0 H (0.0-2.0) mmol/L VBG Potassium 3.5 L (3.6-5.2) mmol/L A-a O2 Difference 589.0 640.0 mm/Hg Glucose 184 H 231 H (75-110) mg/dL Lactate 6.0 H* 8.0 H* (0.7-2.1) mmol/L FiO2 100.0 100.0 % PEEP 5 Crit Value Called To Dr raj kahn Crit Value Called By 115 15 Crit Value Read Back Y Y Blood Gas Notified Time 1250 938 Sodium 135.0 > 200.0 H* (132-148) mmol/l Potassium (3.6-5.0) MMOL/L Chloride 98.0 112.0 H (98-107) mmol/L Carbon Dioxide (22-30) mmol/L Anion Gap (10-20) BUN (9-20) mg/dl Creatinine (0.8-1.5) mg/dl Est GFR ( Amer) Est GFR (Non-Af Amer) POC Glucose (mg/dL) (65-110) mg/dL Random Glucose (75-110) mg/dL Calcium (8.4-10.2) mg/dL Phosphorus (2.5-4.5) mg/dl Magnesium (1.6-2.3) MG/DL Total Bilirubin (0.2-1.3) mg/dl AST (17-59) U/L ALT (21-72) U/L Alkaline Phosphatase (38-126) U/L Troponin I (0.00-0.120) ng/mL Total Protein (6.3-8.2) G/DL Albumin (3.5-5.0) g/dL Globulin (2.2-3.9) gm/dL Albumin/Globulin Ratio (1.0-2.1) Venous Blood Potassium 3.5 L (3.6-5.2) mmol/L Urine Color Iris (YELLOW) Urine Clarity Cloudy (Clear) Urine pH 5.0 (5.0-8.0) Ur Specific Gordon 1.021 (1.003-1.030) Urine Protein Negative (NEGATIVE) mg/dL Urine Glucose (UA) Neg (Normal) mg/dL Urine Ketones Trace (NEGATIVE) mg/dL Urine Blood Small (NEGATIVE) Urine Nitrate Negative (NEGATIVE) Urine Bilirubin Negative (NEGATIVE) Urine Urobilinogen 0.2-1.0 (0.2-1.0) mg/dL Ur Leukocyte Esterase Neg (Negative) Vadim/uL Urine Microscopic WBC 1 (0-5) /hpf Ur Squamous Epith Cells 1 (0-5) /hpf Hyaline Casts 11-20 H (0-2) /hpf 05/28/17 05/28/17 05/28/17 Range/Units 08:40 08:40 08:40 WBC 9.7 D (4.8-10.8) K/uL RBC 5.40 (4.40-5.90) Mil/uL Hgb 16.4 D (12.0-18.0) g/dL Hct 49.1 (35.0-51.0) % MCV 90.9 (80.0-94.0) fl MCH 30.4 (27.0-31.0) pg MCHC 33.4 (33.0-37.0) g/dL RDW 15.1 H (11.5-14.5) % Plt Count 246 (130-400) K/uL MPV 9.9 (7.2-11.7) fl Neut % (Auto) 79.8 H (50.0-75.0) % Lymph % (Auto) 6.3 L (20.0-40.0) % Swain % (Auto) 13.8 H (0.0-10.0) % Eos % (Auto) 0.1 (0.0-4.0) % Baso % (Auto) 0.0 (0.0-2.0) % Neut # (Auto) 7.8 H (1.8-7.0) K/uL Lymph # (Auto) 0.6 L (1.0-4.3) K/uL Swain # (Auto) 1.3 H (0.0-0.8) K/uL Eos # (Auto) 0.0 (0.0-0.7) K/uL Baso # (Auto) 0.0 (0.0-0.2) K/uL Neutrophils % (Manual) 77 H (42-75) % Band Neutrophils % 4 H (0-2) % Lymphocytes % (Manual) 5 L (20-50) % Monocytes % (Manual) 14 H (0-10) % Platelet Estimate Normal (NORMAL) Large Platelets Present Anisocytosis (manual) Slight PT 11.7 (9.8-13.1) Seconds INR 1.1 (0.9-1.2) APTT 26.2 (25.6-37.1) Seconds pO2 (30-55) mm/Hg VBG pH (7.32-7.43) VBG pCO2 (40-60) mmHg VBG HCO3 mmol/L VBG Total CO2 (22-28) mmol/L VBG O2 Sat (Calc) (40-65) % VBG Base Excess (0.0-2.0) mmol/L VBG Potassium (3.6-5.2) mmol/L A-a O2 Difference mm/Hg Glucose (75-110) mg/dL Lactate (0.7-2.1) mmol/L FiO2 % PEEP Crit Value Called To Crit Value Called By Crit Value Read Back Blood Gas Notified Time Sodium 142 (132-148) mmol/l Potassium 3.3 L (3.6-5.0) MMOL/L Chloride 84 L (98-107) mmol/L Carbon Dioxide 27 (22-30) mmol/L Anion Gap 34 H (10-20) BUN 80 H (9-20) mg/dl Creatinine 3.4 H (0.8-1.5) mg/dl Est GFR ( Amer) 21 Est GFR (Non-Af Amer) 18 POC Glucose (mg/dL) (65-110) mg/dL Random Glucose 240 H (75-110) mg/dL Calcium 9.2 (8.4-10.2) mg/dL Phosphorus 7.5 H (2.5-4.5) mg/dl Magnesium 2.2 (1.6-2.3) MG/DL Total Bilirubin 1.8 H (0.2-1.3) mg/dl AST 37 (17-59) U/L ALT 43 (21-72) U/L Alkaline Phosphatase 57 (38-126) U/L Troponin I 0.0560 (0.00-0.120) ng/mL Total Protein 8.7 H (6.3-8.2) G/DL Albumin 4.8 (3.5-5.0) g/dL Globulin 3.9 (2.2-3.9) gm/dL Albumin/Globulin Ratio 1.2 (1.0-2.1) Venous Blood Potassium (3.6-5.2) mmol/L Urine Color (YELLOW) Urine Clarity (Clear) Urine pH (5.0-8.0) Ur Specific Gordon (1.003-1.030) Urine Protein (NEGATIVE) mg/dL Urine Glucose (UA) (Normal) mg/dL Urine Ketones (NEGATIVE) mg/dL Urine Blood (NEGATIVE) Urine Nitrate (NEGATIVE) Urine Bilirubin (NEGATIVE) Urine Urobilinogen (0.2-1.0) mg/dL Ur Leukocyte Esterase (Negative) Vadim/uL Urine Microscopic WBC (0-5) /hpf Ur Squamous Epith Cells (0-5) /hpf Hyaline Casts (0-2) /hpf 05/28/17 Range/Units 08:20 WBC (4.8-10.8) K/uL RBC (4.40-5.90) Mil/uL Hgb (12.0-18.0) g/dL Hct (35.0-51.0) % MCV (80.0-94.0) fl MCH (27.0-31.0) pg MCHC (33.0-37.0) g/dL RDW (11.5-14.5) % Plt Count (130-400) K/uL MPV (7.2-11.7) fl Neut % (Auto) (50.0-75.0) % Lymph % (Auto) (20.0-40.0) % Swain % (Auto) (0.0-10.0) % Eos % (Auto) (0.0-4.0) % Baso % (Auto) (0.0-2.0) % Neut # (Auto) (1.8-7.0) K/uL Lymph # (Auto) (1.0-4.3) K/uL Swain # (Auto) (0.0-0.8) K/uL Eos # (Auto) (0.0-0.7) K/uL Baso # (Auto) (0.0-0.2) K/uL Neutrophils % (Manual) (42-75) % Band Neutrophils % (0-2) % Lymphocytes % (Manual) (20-50) % Monocytes % (Manual) (0-10) % Platelet Estimate (NORMAL) Large Platelets Anisocytosis (manual) PT (9.8-13.1) Seconds INR (0.9-1.2) APTT (25.6-37.1) Seconds pO2 (30-55) mm/Hg VBG pH (7.32-7.43) VBG pCO2 (40-60) mmHg VBG HCO3 mmol/L VBG Total CO2 (22-28) mmol/L VBG O2 Sat (Calc) (40-65) % VBG Base Excess (0.0-2.0) mmol/L VBG Potassium (3.6-5.2) mmol/L A-a O2 Difference mm/Hg Glucose (75-110) mg/dL Lactate (0.7-2.1) mmol/L FiO2 % PEEP Crit Value Called To Crit Value Called By Crit Value Read Back Blood Gas Notified Time Sodium (132-148) mmol/l Potassium (3.6-5.0) MMOL/L Chloride (98-107) mmol/L Carbon Dioxide (22-30) mmol/L Anion Gap (10-20) BUN (9-20) mg/dl Creatinine (0.8-1.5) mg/dl Est GFR ( Amer) Est GFR (Non-Af Amer) POC Glucose (mg/dL) 216 H (65-110) mg/dL Random Glucose (75-110) mg/dL Calcium (8.4-10.2) mg/dL Phosphorus (2.5-4.5) mg/dl Magnesium (1.6-2.3) MG/DL Total Bilirubin (0.2-1.3) mg/dl AST (17-59) U/L ALT (21-72) U/L Alkaline Phosphatase (38-126) U/L Troponin I (0.00-0.120) ng/mL Total Protein (6.3-8.2) G/DL Albumin (3.5-5.0) g/dL Globulin (2.2-3.9) gm/dL Albumin/Globulin Ratio (1.0-2.1) Venous Blood Potassium (3.6-5.2) mmol/L Urine Color (YELLOW) Urine Clarity (Clear) Urine pH (5.0-8.0) Ur Specific Gordon (1.003-1.030) Urine Protein (NEGATIVE) mg/dL Urine Glucose (UA) (Normal) mg/dL Urine Ketones (NEGATIVE) mg/dL Urine Blood (NEGATIVE) Urine Nitrate (NEGATIVE) Urine Bilirubin (NEGATIVE) Urine Urobilinogen (0.2-1.0) mg/dL Ur Leukocyte Esterase (Negative) Vadim/uL Urine Microscopic WBC (0-5) /hpf Ur Squamous Epith Cells (0-5) /hpf Hyaline Casts (0-2) /hpf Laboratory Results - last 24 hr 05/28/17 05/28/17 05/28/17 08:20 08:40 08:40 WBC 9.7 D RBC 5.40 Hgb 16.4 D Hct 49.1 MCV 90.9 MCH 30.4 MCHC 33.4 RDW 15.1 H Plt Count 246 MPV 9.9 Neut % (Auto) 79.8 H Lymph % (Auto) 6.3 L Swain % (Auto) 13.8 H Eos % (Auto) 0.1 Baso % (Auto) 0.0 Neut # (Auto) 7.8 H Lymph # (Auto) 0.6 L Swain # (Auto) 1.3 H Eos # (Auto) 0.0 Baso # (Auto) 0.0 Neutrophils % (Manual) 77 H Band Neutrophils % 4 H Lymphocytes % (Manual) 5 L Monocytes % (Manual) 14 H Platelet Estimate Normal Large Platelets Present Anisocytosis (manual) Slight PT INR APTT pO2 VBG pH VBG pCO2 VBG HCO3 VBG Total CO2 VBG O2 Sat (Calc) VBG Base Excess VBG Potassium A-a O2 Difference Glucose Lactate FiO2 PEEP Crit Value Called To Crit Value Called By Crit Value Read Back Blood Gas Notified Time Sodium 142 Potassium 3.3 L Chloride 84 L Carbon Dioxide 27 Anion Gap 34 H BUN 80 H Creatinine 3.4 H Est GFR ( Amer) 21 Est GFR (Non-Af Amer) 18 POC Glucose (mg/dL) 216 H Random Glucose 240 H Calcium 9.2 Phosphorus 7.5 H Magnesium 2.2 Total Bilirubin 1.8 H AST 37 ALT 43 Alkaline Phosphatase 57 Troponin I 0.0560 Total Protein 8.7 H Albumin 4.8 Globulin 3.9 Albumin/Globulin Ratio 1.2 Venous Blood Potassium Urine Color Urine Clarity Urine pH Ur Specific Gordon Urine Protein Urine Glucose (UA) Urine Ketones Urine Blood Urine Nitrate Urine Bilirubin Urine Urobilinogen Ur Leukocyte Esterase Urine Microscopic WBC Ur Squamous Epith Cells Hyaline Casts 05/28/17 05/28/17 05/28/17 08:40 09:26 10:05 WBC RBC Hgb Hct MCV MCH MCHC RDW Plt Count MPV Neut % (Auto) Lymph % (Auto) Swain % (Auto) Eos % (Auto) Baso % (Auto) Neut # (Auto) Lymph # (Auto) Swain # (Auto) Eos # (Auto) Baso # (Auto) Neutrophils % (Manual) Band Neutrophils % Lymphocytes % (Manual) Monocytes % (Manual) Platelet Estimate Large Platelets Anisocytosis (manual) PT 11.7 INR 1.1 APTT 26.2 pO2 29 L VBG pH 7.55 H VBG pCO2 35 L VBG HCO3 29.9 VBG Total CO2 31.7 H VBG O2 Sat (Calc) 57.4 VBG Base Excess 8.0 H VBG Potassium A-a O2 Difference 640.0 Glucose 231 H Lactate 8.0 H* FiO2 100.0 PEEP 5 Crit Value Called To Dr raj kahn Crit Value Called By 15 Crit Value Read Back Y Blood Gas Notified Time 938 Sodium > 200.0 H* Potassium Chloride 112.0 H Carbon Dioxide Anion Gap BUN Creatinine Est GFR ( Amer) Est GFR (Non-Af Amer) POC Glucose (mg/dL) Random Glucose Calcium Phosphorus Magnesium Total Bilirubin AST ALT Alkaline Phosphatase Troponin I Total Protein Albumin Globulin Albumin/Globulin Ratio Venous Blood Potassium Urine Color Iris Urine Clarity Cloudy Urine pH 5.0 Ur Specific Gordon 1.021 Urine Protein Negative Urine Glucose (UA) Neg Urine Ketones Trace Urine Blood Small Urine Nitrate Negative Urine Bilirubin Negative Urine Urobilinogen 0.2-1.0 Ur Leukocyte Esterase Neg Urine Microscopic WBC 1 Ur Squamous Epith Cells 1 Hyaline Casts 11-20 H /16/18 12:48 WBC RBC Hgb Hct MCV MCH MCHC RDW Plt Count MPV Neut % (Auto) Lymph % (Auto) Swain % (Auto) Eos % (Auto) Baso % (Auto) Neut # (Auto) Lymph # (Auto) Swain # (Auto) Eos # (Auto) Baso # (Auto) Neutrophils % (Manual) Band Neutrophils % Lymphocytes % (Manual) Monocytes % (Manual) Platelet Estimate Large Platelets Anisocytosis (manual) PT INR APTT pO2 39 VBG pH 7.20 L VBG pCO2 68 H* VBG HCO3 21.3 VBG Total CO2 28.7 H VBG O2 Sat (Calc) 62.0 VBG Base Excess -3.2 L VBG Potassium 3.5 L A-a O2 Difference 589.0 Glucose 184 H Lactate 6.0 H* FiO2 100.0 PEEP Crit Value Called To Dr raj winston Crit Value Called By 115 Crit Value Read Back Y Blood Gas Notified Time 1250 Sodium 135.0 Potassium Chloride 98.0 Carbon Dioxide Anion Gap BUN Creatinine Est GFR ( Amer) Est GFR (Non-Af Amer) POC Glucose (mg/dL) Random Glucose Calcium Phosphorus Magnesium Total Bilirubin AST ALT Alkaline Phosphatase Troponin I Total Protein Albumin Globulin Albumin/Globulin Ratio Venous Blood Potassium 3.5 L Urine Color Urine Clarity Urine pH Ur Specific Gordon Urine Protein Urine Glucose (UA) Urine Ketones Urine Blood Urine Nitrate Urine Bilirubin Urine Urobilinogen Ur Leukocyte Esterase Urine Microscopic WBC Ur Squamous Epith Cells Hyaline Casts EKG/Cardiology Studies: Cardiology / EKG Studies 05/28/17 09:21 ELECTROCARDIOGRAM Stat Comment: Mode Of Transportation: Reason For Exam: Sepsis Patient 05/28/17 09:43 ELECTROCARDIOGRAM Stat Comment: Mode Of Transportation: Reason For Exam: Sepsis Patient Fingerstick Blood Sugar Results: 216 Review of Systems - Review of Systems Systems not reviewed;Unavailable: Other (Unable to obtain, Pt orally intubated, uncomfortable) Critical Care Progress Note - Extremities/Vascular Does the Patient have a Central Venous Catheter?: Yes Does the Patient need a Central Venous Catheter?: Yes Does the Patient have a Cummings Catheter?: Yes Does the Patient need a Cummings Catheter?: Yes - Nutrition Nutrition: Nutrition Category Date Time Status NPO Diet [DIET] Diets 05/29/17 Breakfast Active Assessment/Plan (1) Small bowel obstruction Current Visit: Yes Status: Acute (2) ARF (acute renal failure) Current Visit: No Status: Acute (3) Atrial fibrillation with rapid ventricular response Current Visit: No Status: Acute (4) Colon cancer Current Visit: No Status: Acute Comment: post resection 4 years ago no further follow-up chemotherapy (5) Severe sepsis Current Visit: No Status: Acute - Assessment and Plan (Free Text) Assessment: Admit to ICU for hemodynamic and Respiratory monitoring Cardiology/ID/Surgery consultation OG tube to suctio Continue IV Vancomycin, flagyl and Piperacillin Sod/Tazobactam for Broad spectrum antibiotic coverage Avoid alkalemia and hyperoxia. Strict I&O, negative fluid balance Aggressive pulmonary toilet, chest PT, suctioning Continue nebulizer treatment Maintain aspiration precautions HOB maintained at 30 degrees. Optimize blood pressure, hemodynamic monitoring and maintain end-organ perfusion Continue levophed for BP support, wean as tolerated May need Vaso Maintain MAP 65-75 IVF hydration Monitor fever curve, Tylenol PRN fevers Trend WBC count, lactate Monitor Input/Output, daily weights Monitor renal function with basic metabolic panel
--- NOTE | 2017-05-28 14:03 | CT ---
PROCEDURE: CT HEAD WITHOUT CONTRAST. HISTORY: r/o bleed COMPARISON: 03/22/2017 TECHNIQUE: Axial computed tomography images were obtained through the head/brain without intravenous contrast. Coronal and sagittal reconstructed images. Radiation dose: Total exam DLP = 1230.38 mGy-cm. This CT exam was performed using one or more of the following dose reduction techniques: Automated exposure control, adjustment of the mA and/or kV according to patient size, and/or use of iterative reconstruction technique. FINDINGS: HEMORRHAGE: No intracranial hemorrhage. BRAIN: No mass effect or edema. Cortical atrophy, periventricular small vessel disease. 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 No hydrocephalus. CALVARIUM: Unremarkable. PARANASAL SINUSES: Chronic ethmoid air cell disease. MASTOID AIR CELLS: Unremarkable as visualized. No inflammatory changes. OTHER FINDINGS: None. IMPRESSION: No acute intracranial abnormalities. No significant findings to account for the clinical presentation. No significant interval change compared to the prior examination(s).
--- NOTE | 2017-05-28 14:31 | CT ---
PROCEDURE: CT Abdomen and Pelvis without intravenous contrast HISTORY: r/o kidney stone COMPARISON: None. TECHNIQUE: Unenhanced study. Neither oral nor intravenous contrast administered. Radiation dose: Total exam DLP = 809.92 mGy-cm. This CT exam was performed using one or more of the following dose reduction techniques: Automated exposure control, adjustment of the mA and/or kV according to patient size, and/or use of iterative reconstruction technique. FINDINGS: LOWER THORAX: Subsegmental dependent infiltrates/atelectasis. Incompletely visualized centrilobular emphysematous change P LIVER: Unremarkable. No gross lesion or ductal dilatation. GALLBLADDER AND BILE DUCTS: Status post cholecystectomy. No abnormality is seen in the gallbladder fossa. PANCREAS: Unremarkable. No gross lesion or ductal dilatation. SPLEEN: Unremarkable. ADRENALS: Unremarkable. No mass. KIDNEYS AND URETERS: Unremarkable. No hydronephrosis. No solid mass. VASCULATURE: Unremarkable. No aortic aneurysm. BOWEL: Dilated small bowel to the point of the distal ileum with the transition point can be seen in the right hemipelvis. This appears proximal to a surgical suture line related to right hemicolectomy. Adhesions therefore appear to be a likely etiology. APPENDIX: Not visualized consistent with partial/right hemicolectomy. PERITONEUM: Unremarkable. No free fluid. No free air. LYMPH NODES: Unremarkable. No enlarged lymph nodes. BLADDER: Cummings catheter within a collapsed urinary bladder accentuating bladder wall thickness. No bladder calculi identified. REPRODUCTIVE: Unremarkable. BONES: No acute fracture. OTHER FINDINGS: Bilateral fat containing inguinal hernias. IMPRESSION: Distal small bowel obstruction. No evidence of bladder calculi or obstructive uropathy. Additional benign and/or incidental findings described above.
--- NOTE | 2017-05-28 14:31 | CP.PCM.CON ---
History of Present Illness - History of Present Illness History of Present Illness: GI Fellow PGY 4 Consult Note This is a 81yM with pmhx of Afib not on OAC, HTN, HLD, reported hx of colon cancer with right hemicolectomy?, asthma, TIA brought by EMS to the ER after pt called for abdominal pain. On arrival to ED pt was unresponsive, pt's HR was in the 180s, Afib with RVR, and SBP 66. Per ER records cardioversion with 200 J was attempted x 2 with brief conversion to sinus rhythm but pt immediately returned to afib with RVR. Pt was given fluid bolus and started on Dopamine drip. Pt was intubated with hypercapnic respiratory failure and AMS. Pt started on Amiodarone drip. On insertion of NGT pt was noted to have bilious/coffee ground output of 500cc and GI was consulted for SBO. At the time of evaluation pt was intubated, unresponsive, HR 110s Afib and SBP 140s on Levophed. No documentation ofprior EGD/Colonoscopy, unclear hx of colon cancer but pt does have an abdominal surgical scar with right hemicolectomy. Per nursing no melanotic stool or rectal bleeding noted. Abdominal Xray reported to show SBO. ROS: A 12pt ROS was unable to be obtained due to AMS PmHx: As stated in HPI PsHx: unable to be obtained due to AMS SHx: unable to be obtained due to AMS FHx: unable to be obtained due to AMS Past Patient History - Infectious Disease Hx of Infectious Diseases: None - Past Medical History & Family History Past Medical History?: Yes - Past Social History Smoking Status: Former Smoker - CARDIAC Hx Atrial Fibrillation: Yes Hx Cardia Arrhythmia: Yes (a fib dipti) Hx Congestive Heart Failure: Yes Hx Hypercholesterolemia: Yes Hx Hypertension: Yes - PULMONARY Hx Asthma: Yes Hx Bronchitis: Yes - NEUROLOGICAL Hx Parkinson's Disease: Yes Hx Transient Ischemic Attacks (TIA): Yes - HEENT Hx HEENT Problems: Yes Other/Comment: wears glasses - RENAL Hx Chronic Kidney Disease: No - ENDOCRINE/METABOLIC Hx Endocrine Disorders: Yes Hx Diabetes Mellitus Type 2: Yes - HEMATOLOGICAL/ONCOLOGICAL Hx Blood Disorders: Yes Hx Cancer: Yes (prostate) - INTEGUMENTARY Hx Dermatological Problems: Yes Hx Cellulitis: Yes (history of) - MUSCULOSKELETAL/RHEUMATOLOGICAL Hx Arthritis: Yes - GASTROINTESTINAL Hx Diverticulitis: Yes Hx Gall Bladder Disease: Yes Hx Gastritis: Yes - GENITOURINARY/GYNECOLOGICAL Hx Genitourinary Disorders: Yes Hx Incontinence: Yes Hx Prostate Problems: Yes - PSYCHIATRIC Hx Psychophysiologic Disorder: No Hx Substance Use: No - SURGICAL HISTORY Hx Cholecystectomy: Yes - ANESTHESIA Hx Anesthesia: Yes Hx Anesthesia Reactions: No Hx Malignant Hyperthermia: No Meds Allergies/Adverse Reactions: Allergies Allergy/AdvReac Type Severity Reaction Status Date / Time No Known Allergies Allergy Verified 03/22/17 14:27 - Medications Medications: Current Medications Acetaminophen (Tylenol 650 Mg Supp) 650 mg RI ONCE PRN PRN Reason: Fever >100.4 F Last Admin: 05/28/17 12:50 Dose: 650 mg Amiodarone HCl 450 mg/ (Dextrose) 259 mls @ 34.53 mls/hr IVPB .Q7H31M JUDI; 1 MG /MIN PRN Reason: Protocol Last Admin: 05/28/17 11:10 Dose: 34.53 mls/hr Norepinephrine Bitartrate 4 mg (/ Dextrose) 254 mls @ 9.52 mls/hr IV .Q24H JUDI ; 2.5 MCG/MIN PRN Reason: Protocol Last Titration: 05/28/17 14:23 Dose: 5 mcg/min, 19.05 mls/hr Vancomycin HCl 1,000 mg/ (Sodium Chloride) 250 mls @ 250 mls/hr IVPB ONCE ONE PRN Reason: Protocol Stop: 05/28/17 15:24 Lorazepam (Ativan) 1 mg IVP STAT STA Stop: 05/28/17 13:56 Lorazepam (Ativan) 1 mg IVP Q4 PRN PRN Reason: Agitation Physical Exam - Constitutional Appears: Toxic, In Acute Distress - Head Exam Head Exam: ATRAUMATIC, NORMAL INSPECTION, NORMOCEPHALIC - Eye Exam Eye Exam: PERRL - ENT Exam ENT Exam: Mucous Membranes Dry Additional comments: ETT - Respiratory Exam Respiratory Exam: Accessory Muscle Use, Rhonchi, Respiratory Distress - Cardiovascular Exam Cardiovascular Exam: Tachycardia, Irregular Rhythm - GI/Abdominal Exam GI & Abdominal Exam: Distended, Hypoactive Bowel Sounds, Soft. absent: Firm, Guarding, Organomegaly, Rigid - Rectal Exam Rectal Exam: Deferred - Extremities Exam Extremities exam: Positive for: normal inspection - Skin Skin Exam: Dry, Intact, Pallor Results - Vital Signs Recent Vital Signs: Last Vital Signs Temp 101.1 F H 05/28/17 12:45 Pulse 123 H 05/28/17 12:15 Resp 38 H 05/28/17 12:15 BP 97/58 L 05/28/17 12:15 Pulse Ox 100 05/28/17 12:23 - Labs Result Diagrams: 05/28/17 08:40 05/28/17 08:40 Labs: Laboratory Results - last 24 hr 05/28/17 05/28/17 05/28/17 08:20 08:40 08:40 WBC 9.7 D RBC 5.40 Hgb 16.4 D Hct 49.1 MCV 90.9 MCH 30.4 MCHC 33.4 RDW 15.1 H Plt Count 246 MPV 9.9 Neut % (Auto) 79.8 H Lymph % (Auto) 6.3 L [place] % (Auto) 13.8 H Eos % (Auto) 0.1 Baso % (Auto) 0.0 Neut # (Auto) 7.8 H Lymph # (Auto) 0.6 L [place] # (Auto) 1.3 H Eos # (Auto) 0.0 Baso # (Auto) 0.0 Neutrophils % (Manual) 77 H Band Neutrophils % 4 H Lymphocytes % (Manual) 5 L Monocytes % (Manual) 14 H Platelet Estimate Normal Large Platelets Present Anisocytosis (manual) Slight PT INR APTT pO2 VBG pH VBG pCO2 VBG HCO3 VBG Total CO2 VBG O2 Sat (Calc) VBG Base Excess VBG Potassium A-a O2 Difference Glucose Lactate FiO2 PEEP Crit Value Called To Crit Value Called By Crit Value Read Back Blood Gas Notified Time Sodium 142 Potassium 3.3 L Chloride 84 L Carbon Dioxide 27 Anion Gap 34 H BUN 80 H Creatinine 3.4 H Est GFR ( Amer) 21 Est GFR (Non-Af Amer) 18 POC Glucose (mg/dL) 216 H Random Glucose 240 H Calcium 9.2 Phosphorus 7.5 H Magnesium 2.2 Total Bilirubin 1.8 H AST 37 ALT 43 Alkaline Phosphatase 57 Troponin I 0.0560 Total Protein 8.7 H Albumin 4.8 Globulin 3.9 Albumin/Globulin Ratio 1.2 Venous Blood Potassium Urine Color Urine Clarity Urine pH Ur Specific [place] Urine Protein Urine Glucose (UA) Urine Ketones Urine Blood Urine Nitrate Urine Bilirubin Urine Urobilinogen Ur Leukocyte Esterase Urine Microscopic WBC Ur Squamous Epith Cells Hyaline Casts 05/28/17 05/28/17 05/28/17 08:40 09:26 10:05 WBC RBC Hgb Hct MCV MCH MCHC RDW Plt Count MPV Neut % (Auto) Lymph % (Auto) [place] % (Auto) Eos % (Auto) Baso % (Auto) Neut # (Auto) Lymph # (Auto) [place] # (Auto) Eos # (Auto) Baso # (Auto) Neutrophils % (Manual) Band Neutrophils % Lymphocytes % (Manual) Monocytes % (Manual) Platelet Estimate Large Platelets Anisocytosis (manual) PT 11.7 INR 1.1 APTT 26.2 pO2 29 L VBG pH 7.55 H VBG pCO2 35 L VBG HCO3 29.9 VBG Total CO2 31.7 H VBG O2 Sat (Calc) 57.4 VBG Base Excess 8.0 H VBG Potassium A-a O2 Difference 640.0 Glucose 231 H Lactate 8.0 H* FiO2 100.0 PEEP 5 Crit Value Called To Dr raj kahn Crit Value Called By 15 Crit Value Read Back Y Blood Gas Notified Time 938 Sodium > 200.0 H* Potassium Chloride 112.0 H Carbon Dioxide Anion Gap BUN Creatinine Est GFR ( Amer) Est GFR (Non-Af Amer) POC Glucose (mg/dL) Random Glucose Calcium Phosphorus Magnesium Total Bilirubin AST ALT Alkaline Phosphatase Troponin I Total Protein Albumin Globulin Albumin/Globulin Ratio Venous Blood Potassium Urine Color Iris Urine Clarity Cloudy Urine pH 5.0 Ur Specific [place] 1.021 Urine Protein Negative Urine Glucose (UA) Neg Urine Ketones Trace Urine Blood Small Urine Nitrate Negative Urine Bilirubin Negative Urine Urobilinogen 0.2-1.0 Ur Leukocyte Esterase Neg Urine Microscopic WBC 1 Ur Squamous Epith Cells 1 Hyaline Casts 11-20 H 05/28/17 12:48 WBC RBC Hgb Hct MCV MCH MCHC RDW Plt Count MPV Neut % (Auto) Lymph % (Auto) [place] % (Auto) Eos % (Auto) Baso % (Auto) Neut # (Auto) Lymph # (Auto) [place] # (Auto) Eos # (Auto) Baso # (Auto) Neutrophils % (Manual) Band Neutrophils % Lymphocytes % (Manual) Monocytes % (Manual) Platelet Estimate Large Platelets Anisocytosis (manual) PT INR APTT pO2 39 VBG pH 7.20 L VBG pCO2 68 H* VBG HCO3 21.3 VBG Total CO2 28.7 H VBG O2 Sat (Calc) 62.0 VBG Base Excess -3.2 L VBG Potassium 3.5 L A-a O2 Difference 589.0 Glucose 184 H Lactate 6.0 H* FiO2 100.0 PEEP Crit Value Called To Dr raj winston Crit Value Called By 115 Crit Value Read Back Y Blood Gas Notified Time 1250 Sodium 135.0 Potassium Chloride 98.0 Carbon Dioxide Anion Gap BUN Creatinine Est GFR ( Amer) Est GFR (Non-Af Amer) POC Glucose (mg/dL) Random Glucose Calcium Phosphorus Magnesium Total Bilirubin AST ALT Alkaline Phosphatase Troponin I Total Protein Albumin Globulin Albumin/Globulin Ratio Venous Blood Potassium 3.5 L Urine Color Urine Clarity Urine pH Ur Specific [place] Urine Protein Urine Glucose (UA) Urine Ketones Urine Blood Urine Nitrate Urine Bilirubin Urine Urobilinogen Ur Leukocyte Esterase Urine Microscopic WBC Ur Squamous Epith Cells Hyaline Casts Assessment & Plan - Assessment and Plan (Free Text) Assessment: This is a 81yM presenting with abdominal pain, AMS, hypotension and Afib with RVR. 1. Septic Shock 2. Afib with RVR 3. Hypercapnic Respiratory Faliure s/p VDRF 4. SBO with Coffee ground/Bilious outpt 5. Lactic acidosis 6. ARF 7. Hx of colon cancer with right hemicolectomy Plan: -Continue supportive care per ICU team, pt critically ill -IVF hydration with pressor support for shock -Pt hemodynamically unstable -Recommend septic workup with broad spectrum abx, blood cultures -SBO maybe from adhesions with hx of abdominal surgeries -Concern for possible ischemic bowel with Afib RVR and not OAC, elevated lactate, unable to get CTAngio with ARF, CTA/P wo contrast pending -No signs of acute GI bleed, monitor H/H -Continue NGT to suction, monitor I/Os -Surgical consultation recommended -NPO -No plan for any endoscopic evaluation at this time -Will continue to monitor closely Discussed case with Dr. Johns
[2017-05-28 15:49] LABS: VENOUS BLOOD GAS BASE EXCESS -7.3 mmol/L (0.0-2.0); VENOUS BLOOD GAS PCO2 77 mmHg (40-60); VENOUS BLOOD GAS PO2 40 mm/Hg (30-55)
[2017-05-28 16:24] VITALS: TEMP 99.1
[2017-05-28] MEDS ORDERED: Chlorhexidine Gluconate 1 APPL/PKT TP ONE (16:59)
[2017-05-28 17:07] VITALS: BP 92/63; PULSE 98; RESP 15; O2SAT 80
[2017-05-28 17:17] LABS: ABG ALLEN TEST YES; ARTERIAL BLOOD GAS O2 CAPACITY 16.6 mL/dL (16-24); ARTERIAL BLOOD GAS O2 CONTENT 15.4 ML/dL (15-23); ARTERIAL BLOOD GAS O2 SAT 92.6 % (95-98); ARTERIAL BLOOD GAS PCO2 61 mm/Hg (35-45); ARTERIAL BLOOD GAS PH 7.14 (7.35-7.45); ARTERIAL BLOOD GAS PO2 80 mm/Hg (80-100); ARTERIAL BLOOD GAS TCO2 22.7 mmol/L (22-28)
[2017-05-28] MEDS ORDERED: DOPamine 400mg/250ml D5W 400 MG/250 ML BAG IV SCH (17:28)
[2017-05-28] MEDS ORDERED: Sodium Chloride 0.9% 1,000 ML IV SCH (17:30)
[2017-05-28 17:37] LABS: BASO % 0.3 % (0.0-2.0); EOS % 0.6 % (0.0-4.0); HEMOGLOBIN 13.1 g/dL (12.0-18.0); LYMPH # 0.3 K/uL (1.0-4.3); LYMPH % 24.6 % (20.0-40.0); MEAN CORPUSCULAR HEMOGLOBIN 30.3 pg (27.0-31.0); MEAN CORPUSCULAR HGB CONC 31.3 g/dL (33.0-37.0); MEAN PLATELET VOLUME 10.2 fl (7.2-11.7); MONO # 0.2 K/uL (0.0-0.8); MONO % 13.6 % (0.0-10.0); NEUT # 0.7 K/uL (1.8-7.0); NEUT % 60.9 % (50.0-75.0); NRBC % 1.4 % (0.0-0.0); RBC 4.33 Mil/uL (4.40-5.90); RED CELL DISTRIBUTION WIDTH 15.7 % (11.5-14.5)
[2017-05-28 17:48] LABS: ALB/GLOB RATIO 1.1 (1.0-2.1); ALBUMIN 2.7 g/dL (3.5-5.0); CALCIUM 7.5 mg/dL (8.4-10.2)
--- NOTE | 2017-05-28 18:55 | CP.PCM.PRO ---
Pronouncement of Note - Clinical Findings Physical Exam: No Response Verbal/Painful Stimuli, Absent Peripheral Pulses{ Carotid & Femoral}, Absent Heart & Breath Sounds, No Pupillary Light Reflex, No Corneal Reflex, Pupils Fixed & Dilated, Absence of Vital Signs - Pronouncement Time Time of Pronouncement of : 17:58 - Notifications Pronouncement Notifications: Family Notified, Atending Notified Alternative Energy Engineer Notified: Yes - Autopsy Autopsy Requested: No - [place] [id number] Additional Comments: Alternative Energy Engineer contacted, natural
--- NOTE | 2017-05-28 18:58 | CP.PCM.HP ---
History of Present Illness - History of Present Illness History of Present Illness: alerted by pts RN that he 1757. pts pmd aware. Present on Admission - Present on Admission Any Indicators Present on Admission: Yes History of Uncontrolled Diabetes: Yes Past Patient History - Infectious Disease Hx of Infectious Diseases: None - Past Medical History & Family History Past Medical History?: Yes - Past Social History Smoking Status: Former Smoker - CARDIAC Hx Atrial Fibrillation: Yes Hx Cardia Arrhythmia: Yes (a fib dipti) Hx Congestive Heart Failure: Yes Hx Hypercholesterolemia: Yes Hx Hypertension: Yes - PULMONARY Hx Asthma: Yes Hx Bronchitis: Yes - NEUROLOGICAL Hx Parkinson's Disease: Yes Hx Transient Ischemic Attacks (TIA): Yes - HEENT Hx HEENT Problems: Yes Other/Comment: wears glasses - RENAL Hx Chronic Kidney Disease: No - ENDOCRINE/METABOLIC Hx Endocrine Disorders: Yes Hx Diabetes Mellitus Type 2: Yes - HEMATOLOGICAL/ONCOLOGICAL Hx Blood Disorders: Yes Hx Cancer: Yes (prostate) - INTEGUMENTARY Hx Dermatological Problems: Yes Hx Cellulitis: Yes (history of) - MUSCULOSKELETAL/RHEUMATOLOGICAL Hx Arthritis: Yes - GASTROINTESTINAL Hx Diverticulitis: Yes Hx Gall Bladder Disease: Yes Hx Gastritis: Yes - GENITOURINARY/GYNECOLOGICAL Hx Genitourinary Disorders: Yes Hx Incontinence: Yes Hx Prostate Problems: Yes - PSYCHIATRIC Hx Psychophysiologic Disorder: No Hx Substance Use: No - SURGICAL HISTORY Hx Cholecystectomy: Yes - ANESTHESIA Hx Anesthesia: Yes Hx Anesthesia Reactions: No Hx Malignant Hyperthermia: No Meds Allergies/Adverse Reactions: Allergies Allergy/AdvReac Type Severity Reaction Status Date / Time No Known Allergies Allergy Verified 03/22/17 14:27 Results - Vital Signs Recent Vital Signs: Last Vital Signs Temp 99.1 F 05/28/17 16:13 Pulse 98 H 05/28/17 17:00 Resp 15 05/28/17 17:00 BP 92/63 L 05/28/17 17:00 Pulse Ox 80 L 05/28/17 17:00 - Labs Result Diagrams: 05/28/17 16:00 05/28/17 16:00 Labs: Laboratory Results - last 24 hr 05/28/17 05/28/17 05/28/17 08:20 08:40 08:40 WBC 9.7 D RBC 5.40 Hgb 16.4 D Hct 49.1 MCV 90.9 MCH 30.4 MCHC 33.4 RDW 15.1 H Plt Count 246 MPV 9.9 Neut % (Auto) 79.8 H Lymph % (Auto) 6.3 L [place] % (Auto) 13.8 H Eos % (Auto) 0.1 Baso % (Auto) 0.0 Neut # (Auto) 7.8 H Lymph # (Auto) 0.6 L [place] # (Auto) 1.3 H Eos # (Auto) 0.0 Baso # (Auto) 0.0 Neutrophils % (Manual) 77 H Band Neutrophils % 4 H Lymphocytes % (Manual) 5 L Monocytes % (Manual) 14 H Platelet Estimate Normal Large Platelets Present Anisocytosis (manual) Slight PT INR APTT pCO2 pO2 HCO3 ABG pH ABG Total CO2 ABG O2 Saturation ABG O2 Content ABG Base Excess ABG Hemoglobin ABG Carboxyhemoglobin POC ABG HHb (Measured) ABG Methemoglobin ABG O2 Capacity New Test VBG pH VBG pCO2 VBG HCO3 VBG Total CO2 VBG O2 Sat (Calc) VBG Base Excess VBG Potassium A-a O2 Difference Hgb O2 Saturation Glucose Lactate FiO2 PEEP Blood Gas Comments Crit Value Called To Crit Value Called By Crit Value Read Back Blood Gas Notified Time Sodium 142 Potassium 3.3 L Chloride 84 L Carbon Dioxide 27 Anion Gap 34 H BUN 80 H Creatinine 3.4 H Est GFR ( Amer) 21 Est GFR (Non-Af Amer) 18 POC Glucose (mg/dL) 216 H Random Glucose 240 H Calcium 9.2 Phosphorus 7.5 H Magnesium 2.2 Total Bilirubin 1.8 H AST 37 ALT 43 Alkaline Phosphatase 57 Troponin I 0.0560 Total Protein 8.7 H Albumin 4.8 Globulin 3.9 Albumin/Globulin Ratio 1.2 Venous Blood Potassium Urine Color Urine Clarity Urine pH Ur Specific [place] Urine Protein Urine Glucose (UA) Urine Ketones Urine Blood Urine Nitrate Urine Bilirubin Urine Urobilinogen Ur Leukocyte Esterase Urine Microscopic WBC Ur Squamous Epith Cells Hyaline Casts 05/28/17 05/28/17 05/28/17 08:40 09:26 10:05 WBC RBC Hgb Hct MCV MCH MCHC RDW Plt Count MPV Neut % (Auto) Lymph % (Auto) [place] % (Auto) Eos % (Auto) Baso % (Auto) Neut # (Auto) Lymph # (Auto) [place] # (Auto) Eos # (Auto) Baso # (Auto) Neutrophils % (Manual) Band Neutrophils % Lymphocytes % (Manual) Monocytes % (Manual) Platelet Estimate Large Platelets Anisocytosis (manual) PT 11.7 INR 1.1 APTT 26.2 pCO2 pO2 29 L HCO3 ABG pH ABG Total CO2 ABG O2 Saturation ABG O2 Content ABG Base Excess ABG Hemoglobin ABG Carboxyhemoglobin POC ABG HHb (Measured) ABG Methemoglobin ABG O2 Capacity New Test VBG pH 7.55 H VBG pCO2 35 L VBG HCO3 29.9 VBG Total CO2 31.7 H VBG O2 Sat (Calc) 57.4 VBG Base Excess 8.0 H VBG Potassium A-a O2 Difference 640.0 Hgb O2 Saturation Glucose 231 H Lactate 8.0 H* FiO2 100.0 PEEP 5 Blood Gas Comments Crit Value Called To Dr raj kahn Crit Value Called By 15 Crit Value Read Back Y Blood Gas Notified Time 938 Sodium > 200.0 H* Potassium Chloride 112.0 H Carbon Dioxide Anion Gap BUN Creatinine Est GFR ( Amer) Est GFR (Non-Af Amer) POC Glucose (mg/dL) Random Glucose Calcium Phosphorus Magnesium Total Bilirubin AST ALT Alkaline Phosphatase Troponin I Total Protein Albumin Globulin Albumin/Globulin Ratio Venous Blood Potassium Urine Color Iris Urine Clarity Cloudy Urine pH 5.0 Ur Specific [place] 1.021 Urine Protein Negative Urine Glucose (UA) Neg Urine Ketones Trace Urine Blood Small Urine Nitrate Negative Urine Bilirubin Negative Urine Urobilinogen 0.2-1.0 Ur Leukocyte Esterase Neg Urine Microscopic WBC 1 Ur Squamous Epith Cells 1 Hyaline Casts 11-20 H 05/28/17 05/28/17 05/28/17 12:48 15:42 15:50 WBC RBC Hgb Hct MCV MCH MCHC RDW Plt Count MPV Neut % (Auto) Lymph % (Auto) [place] % (Auto) Eos % (Auto) Baso % (Auto) Neut # (Auto) Lymph # (Auto) [place] # (Auto) Eos # (Auto) Baso # (Auto) Neutrophils % (Manual) Band Neutrophils % Lymphocytes % (Manual) Monocytes % (Manual) Platelet Estimate Large Platelets Anisocytosis (manual) PT INR APTT pCO2 61 H pO2 39 40 80 HCO3 18.0 L ABG pH 7.14 L* ABG Total CO2 22.7 ABG O2 Saturation 92.6 L ABG O2 Content 15.4 ABG Base Excess -8.7 L ABG Hemoglobin 12.0 ABG Carboxyhemoglobin 1.1 POC ABG HHb (Measured) 7.3 H ABG Methemoglobin 0.7 ABG O2 Capacity 16.6 New Test Yes VBG pH 7.20 L 7.10 L* VBG pCO2 68 H* 77 H* VBG HCO3 21.3 18.0 VBG Total CO2 28.7 H 26.3 VBG O2 Sat (Calc) 62.0 58.7 VBG Base Excess -3.2 L -7.3 L VBG Potassium 3.5 L 3.7 A-a O2 Difference 589.0 557.0 Hgb O2 Saturation 90.9 L Glucose 184 H 156 H Lactate 6.0 H* 16.0 H* FiO2 100.0 100.0 100.0 PEEP Blood Gas Comments Lac=16 Lac=15.3 Crit Value Called To kei [place] sherif Crit Value Called By 115 22 22 Crit Value Read Back Y Y Y Blood Gas Notified Time 1250 1549 1552 Sodium 135.0 142.0 Potassium Chloride 98.0 98.0 Carbon Dioxide Anion Gap BUN Creatinine Est GFR ( Amer) Est GFR (Non-Af Amer) POC Glucose (mg/dL) Random Glucose Calcium Phosphorus Magnesium Total Bilirubin AST ALT Alkaline Phosphatase Troponin I Total Protein Albumin Globulin Albumin/Globulin Ratio Venous Blood Potassium 3.5 L 3.7 Urine Color Urine Clarity Urine pH Ur Specific [place] Urine Protein Urine Glucose (UA) Urine Ketones Urine Blood Urine Nitrate Urine Bilirubin Urine Urobilinogen Ur Leukocyte Esterase Urine Microscopic WBC Ur Squamous Epith Cells Hyaline Casts 05/28/17 05/28/17 05/28/17 16:00 16:00 17:44 WBC RBC 4.33 L Hgb 13.1 D Hct 42.0 MCV 97.0 H D MCH 30.3 MCHC 31.3 L RDW 15.7 H Plt Count 160 MPV 10.2 Neut % (Auto) 60.9 Lymph % (Auto) 24.6 [place] % (Auto) 13.6 H Eos % (Auto) 0.6 Baso % (Auto) 0.3 Neut # (Auto) 0.7 L Lymph # (Auto) 0.3 L [place] # (Auto) 0.2 Eos # (Auto) 0.0 Baso # (Auto) 0.0 Neutrophils % (Manual) Band Neutrophils % Lymphocytes % (Manual) Monocytes % (Manual) Platelet Estimate Large Platelets Anisocytosis (manual) PT INR APTT pCO2 pO2 HCO3 ABG pH ABG Total CO2 ABG O2 Saturation ABG O2 Content ABG Base Excess ABG Hemoglobin ABG Carboxyhemoglobin POC ABG HHb (Measured) ABG Methemoglobin ABG O2 Capacity New Test VBG pH VBG pCO2 VBG HCO3 VBG Total CO2 VBG O2 Sat (Calc) VBG Base Excess VBG Potassium A-a O2 Difference Hgb O2 Saturation Glucose Lactate FiO2 PEEP Blood Gas Comments Crit Value Called To Crit Value Called By Crit Value Read Back Blood Gas Notified Time Sodium 143 Potassium 4.0 Chloride 98 Carbon Dioxide 19 L Anion Gap 30 H BUN 75 H Creatinine 3.1 H Est GFR ( Amer) 24 Est GFR (Non-Af Amer) 20 POC Glucose (mg/dL) 62 L Random Glucose 77 Calcium 7.5 L Phosphorus Magnesium 2.2 Total Bilirubin 1.6 H AST 757 H D ALT 780 H D Alkaline Phosphatase 29 L D Troponin I Total Protein 5.2 L Albumin 2.7 L D Globulin 2.5 Albumin/Globulin Ratio 1.1 Venous Blood Potassium Urine Color Urine Clarity Urine pH Ur Specific [place] Urine Protein Urine Glucose (UA) Urine Ketones Urine Blood Urine Nitrate Urine Bilirubin Urine Urobilinogen Ur Leukocyte Esterase Urine Microscopic WBC Ur Squamous Epith Cells Hyaline Casts Decision To Admit - Pt Status Changed To: Hospital Disposition Of: Inpatient - Admit Certification Admit to Inpatient:: After my assessment, the patient will require hospitalization for at least two midnights. This is because of the severity of symptoms shown, intensity of services needed, and/or the medical risk in this patient being treated as an outpatient. - . Bed Request Type: Intensive Care Admitting Physician: Emily Johnson
--- NOTE | 2017-05-28 19:00 | CP.PCM.DIS ---
Provider - Provider Date of Admission: 05/28/17 09:56 Attending physician: Emily Johnson MD Time Spent in preparation of Discharge (in minutes): 0 Hospital Course - Lab Results Lab Results: Most Recent Lab Values WBC K/uL (4.8-10.8) 05/28/17 16:00 RBC 4.33 Mil/uL (4.40-5.90) L 05/28/17 16:00 Hgb 13.1 g/dL (12.0-18.0) D 05/28/17 16:00 Hct 42.0 % (35.0-51.0) 05/28/17 16:00 MCV 97.0 fl (80.0-94.0) H D 05/28/17 16:00 MCH 30.3 pg (27.0-31.0) 05/28/17 16:00 MCHC 31.3 g/dL (33.0-37.0) L 05/28/17 16:00 RDW 15.7 % (11.5-14.5) H 05/28/17 16:00 Plt Count 160 K/uL (130-400) 05/28/17 16:00 MPV 10.2 fl (7.2-11.7) 05/28/17 16:00 Neut % (Auto) 60.9 % (50.0-75.0) 05/28/17 16:00 Lymph % (Auto) 24.6 % (20.0-40.0) 05/28/17 16:00 [place] % (Auto) 13.6 % (0.0-10.0) H 05/28/17 16:00 Eos % (Auto) 0.6 % (0.0-4.0) 05/28/17 16:00 Baso % (Auto) 0.3 % (0.0-2.0) 05/28/17 16:00 Neut # (Auto) 0.7 K/uL (1.8-7.0) L 05/28/17 16:00 Lymph # (Auto) 0.3 K/uL (1.0-4.3) L 05/28/17 16:00 [place] # (Auto) 0.2 K/uL (0.0-0.8) 05/28/17 16:00 Eos # (Auto) 0.0 K/uL (0.0-0.7) 05/28/17 16:00 Baso # (Auto) 0.0 K/uL (0.0-0.2) 05/28/17 16:00 Neutrophils % (Manual) 77 % (42-75) H 05/28/17 08:40 Band Neutrophils % 4 % (0-2) H 05/28/17 08:40 Lymphocytes % (Manual) 5 % (20-50) L 05/28/17 08:40 Monocytes % (Manual) 14 % (0-10) H 05/28/17 08:40 Platelet Estimate Normal (NORMAL) 05/28/17 08:40 Large Platelets Present 05/28/17 08:40 Anisocytosis (manual) Slight 05/28/17 08:40 PT 11.7 Seconds (9.8-13.1) 05/28/17 08:40 INR 1.1 (0.9-1.2) 05/28/17 08:40 APTT 26.2 Seconds (25.6-37.1) 05/28/17 08:40 pCO2 61 mm/Hg (35-45) H 05/28/17 15:50 pO2 80 mm/Hg (80-100) 05/28/17 15:50 HCO3 18.0 mmol/L (21-28) L 05/28/17 15:50 ABG pH 7.14 (7.35-7.45) L* 05/28/17 15:50 ABG Total CO2 22.7 mmol/L (22-28) 05/28/17 15:50 ABG O2 Saturation 92.6 % (95-98) L 05/28/17 15:50 ABG O2 Content 15.4 ML/dL (15-23) 05/28/17 15:50 ABG Base Excess -8.7 mmol/L (-2.0-3.0) L 05/28/17 15:50 ABG Hemoglobin 12.0 g/dL (11.7-17.4) 05/28/17 15:50 ABG Carboxyhemoglobin 1.1 % (0.5-1.5) 05/28/17 15:50 POC ABG HHb (Measured) 7.3 % (0.0-5.0) H 05/28/17 15:50 ABG Methemoglobin 0.7 % (0.0-3.0) 05/28/17 15:50 ABG O2 Capacity 16.6 mL/dL (16-24) 05/28/17 15:50 New Test Yes 05/28/17 15:50 VBG pH 7.10 (7.32-7.43) L* 05/28/17 15:42 VBG pCO2 77 mmHg (40-60) H* 05/28/17 15:42 VBG HCO3 18.0 mmol/L 05/28/17 15:42 VBG Total CO2 26.3 mmol/L (22-28) 05/28/17 15:42 VBG O2 Sat (Calc) 58.7 % (40-65) 05/28/17 15:42 VBG Base Excess -7.3 mmol/L (0.0-2.0) L 05/28/17 15:42 VBG Potassium 3.7 mmol/L (3.6-5.2) 05/28/17 15:42 A-a O2 Difference 557.0 mm/Hg 05/28/17 15:50 Hgb O2 Saturation 90.9 % (95.0-98.0) L 05/28/17 15:50 Sodium 142.0 mmol/L (132-148) 05/28/17 15:42 Chloride 98.0 mmol/L (98-107) 05/28/17 15:42 Glucose 156 mg/dL (75-110) H 05/28/17 15:42 Lactate 16.0 mmol/L (0.7-2.1) H* 05/28/17 15:42 FiO2 100.0 % 05/28/17 15:50 PEEP 5 05/28/17 09:26 Blood Gas Comments Lac=15.3 05/28/17 15:50 Crit Value Called To kei Kathleen 05/28/17 15:50 Crit Value Called By 05/28/17 15:50 Crit Value Read Back Y 05/28/17 15:50 Blood Gas Notified Time 1552 05/28/17 15:50 Sodium 143 mmol/l (132-148) 05/28/17 16:00 Potassium 4.0 MMOL/L (3.6-5.0) 04/16/18 16:00 Chloride 98 mmol/L (98-107) 05/28/17 16:00 Carbon Dioxide 19 mmol/L (22-30) L 05/28/17 16:00 Anion Gap 30 (10-20) H 05/28/17 16:00 BUN 75 mg/dl (9-20) H 05/28/17 16:00 Creatinine 3.1 mg/dl (0.8-1.5) H 05/28/17 16:00 Est GFR ( Amer) 24 05/28/17 16:00 Est GFR (Non-Af Amer) 20 05/28/17 16:00 POC Glucose (mg/dL) 62 mg/dL (65-110) L 05/28/17 17:44 Random Glucose 77 mg/dL (75-110) 05/28/17 16:00 Calcium 7.5 mg/dL (8.4-10.2) L 05/28/17 16:00 Phosphorus 7.5 mg/dl (2.5-4.5) H 05/28/17 08:40 Magnesium 2.2 MG/DL (1.6-2.3) 05/28/17 16:00 Total Bilirubin 1.6 mg/dl (0.2-1.3) H 05/28/17 16:00 AST 757 U/L (17-59) H D 05/28/17 16:00 ALT 780 U/L (21-72) H D 05/28/17 16:00 Alkaline Phosphatase 29 U/L (38-126) L D 05/28/17 16:00 Troponin I 0.0560 ng/mL (0.00-0.120) 05/28/17 08:40 Total Protein 5.2 G/DL (6.3-8.2) L 05/28/17 16:00 Albumin 2.7 g/dL (3.5-5.0) L D 05/28/17 16:00 Globulin 2.5 gm/dL (2.2-3.9) 05/28/17 16:00 Albumin/Globulin Ratio 1.1 (1.0-2.1) 05/28/17 16:00 Venous Blood Potassium 3.7 mmol/L (3.6-5.2) 05/28/17 15:42 Urine Color Iris (YELLOW) 05/28/17 10:05 Urine Clarity Cloudy (Clear) 05/28/17 10:05 Urine pH 5.0 (5.0-8.0) 05/28/17 10:05 Ur Specific [place] 1.021 (1.003-1.030) 05/28/17 10:05 Urine Protein Negative mg/dL (NEGATIVE) 05/28/17 10:05 Urine Glucose (UA) Neg mg/dL (Normal) 05/28/17 10:05 Urine Ketones Trace mg/dL (NEGATIVE) 05/28/17 10:05 Urine Blood Small (NEGATIVE) 05/28/17 10:05 Urine Nitrate Negative (NEGATIVE) 05/28/17 10:05 Urine Bilirubin Negative (NEGATIVE) 05/28/17 10:05 Urine Urobilinogen 0.2-1.0 mg/dL (0.2-1.0) 05/28/17 10:05 Ur Leukocyte Esterase Neg Vadim/uL (Negative) 05/28/17 10:05 Urine Microscopic WBC 1 /hpf (0-5) 05/28/17 10:05 Ur Squamous Epith Cells 1 /hpf (0-5) 05/28/17 10:05 Hyaline Casts 11-20 /hpf (0-2) H 05/28/17 10:05 - Hospital Course Hospital Course: 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 surgery, gi consults cardio, id were penidng iv anbx given, ct head/abd noted coded x 2 in ICU w/ direct care provided by dr bal icu attending. Discharge Exam - Head Exam Head Exam: ATRAUMATIC, NORMAL INSPECTION, NORMOCEPHALIC Discharge Plan - Follow Up Plan Condition: CRITICAL Disposition: HOME/ ROUTINE Additional Instructions: final dx-septic shock, abd pain, sbo, rapid afib w/ rvr/svt, multiorgan failure , arf, dm2 pt coded and prior to eval by this provider. direct care from dr bal icu attending.
[2017-05-28 19:04] LABS: WHITE BLOOD COUNT 1.7 K/uL (4.8-10.8)
== END 2017-05-28 20:50 | DRG 871 ==
LOC: H.ER 08:12 → H.ERHOLD 09:56 → H.ICU/CCU 13:17
PROVIDERS: ADMIT Family Medicine; ATTEND Family Medicine
PROC: 05HM33Z Insertion of Infusion Device into Right Internal Jugular Vein, Percutaneous Approach (ICD-10-PCS; principal; 2017-05-28)
PROC: 5A2204Z Restoration of Cardiac Rhythm, Single (ICD-10-PCS; 2017-05-28)
PROC: 0BH17EZ Insertion of Endotracheal Airway into Trachea, Via Natural or Artificial Opening (ICD-10-PCS; 2017-05-28)
PROC: 5A1935Z Respiratory Ventilation, Less than 24 Consecutive Hours (ICD-10-PCS; 2017-05-28)
PROC: 5A12012 Performance of Cardiac Output, Single, Manual (ICD-10-PCS; 2017-05-28)
DX: A41.9 Sepsis, unspecified organism (principal); J96.92 Respiratory failure, unspecified with hypercapnia; R65.21 Severe sepsis with septic shock; K56.609 Unspecified intestinal obstruction, unspecified as to partial versus complete obstruction; E87.2 Acidosis; N17.9 Acute kidney failure, unspecified; E78.00 Pure hypercholesterolemia, unspecified; E78.5 Hyperlipidemia, unspecified; G20 Parkinson's disease; I48.91 Unspecified atrial fibrillation; Z85.038 Personal history of other malignant neoplasm of large intestine; E11.9 Type 2 diabetes mellitus without complications; J45.909 Unspecified asthma, uncomplicated; K29.70 Gastritis, unspecified, without bleeding; I11.0 Hypertensive heart disease with heart failure; I50.9 Heart failure, unspecified; Z87.891 Personal history of nicotine dependence; I46.9 Cardiac arrest, cause unspecified